=== PATIENT | female | born 1935 | race Caucasian/White ===

== ENCOUNTER → 2017-12-31 11:44 | Outpatient (REF) | payer MEDICARE, SELFPAY ==
[2017-12-31 18:16] LABS: Basophils % 0.2 % (0.1-2.0); Eosinophils # 0.1 K/mm3 (0.0-0.4); Eosinophils % 3.8 % (0.1-12.0); Hematocrit 33.5 % (37.0-47.0); Lymphocytes # 0.9 K/mm3 (0.7-4.5); Lymphocytes % 24.6 K/mm3 (10-50); Mean Corpuscular HGB Conc 32.8 g/dL (31.8-35.4); Mean Corpuscular Hemoglobin 31.5 pg (27.0-31.2); Mean Corpuscular Volume 95.9 fl (81-99); Mean Platelet Volume 9.6 fl (7.4-10.4); Monocytes # 0.4 K/mm3 (0.1-1.0); Monocytes % 9.6 % (1.7-9.3); Neutrophils # 2.3 K/mm3 (1.8-7.8); Neutrophils % 61.9 % (37.0-80.0); Platelet Count 184 K/mm3 (142-424); Red Blood Count 3.49 M/mm3 (4.20-5.40); Red Cell Distribution Width 12.8 % (11.5-17.5); White Blood Count 3.8 K/mm3 (4.8-10.8)
[2017-12-31 18:37] LABS: Alanine Aminotransferase 19 U/L (12-78); Albumin Level 3.8 gm/dL (3.4-5.0); Albumin/Globulin Ratio 1.2 (1.1-1.8); Alkaline Phosphatase 51 U/L (46-116); Anion Gap 15.5 mEq/L (5-15); Aspartate Amino Transferase 17 U/L (15-37); Bilirubin,Total 0.3 mg/dL (0.2-1.0); Blood Urea Nitrogen 23 mg/dL (7-18); Calcium 9.5 mg/dL (8.5-10.1); Carbon Dioxide 25 mmol/L (21.0-32.0); Chloride 104 mmol/L (98-107); Chol/HDL Ratio 2.6 (1-3.5); Cholesterol 195 mg/dL (140-200); Creatinine,Serum 1.44 mg/dL (0.55-1.02); Estimated Glomerular Filt Rate 35 ml/min (>60); GFR (African American) 42 ML/MIN (>60); Globulin 3.3 gm/dl (1.3-3.2); Glucose 100 mg/dL (74-106); HDL Cholesterol 74 mg/dL (29-89); LDL Cholesterol 95 mg/dL (0-130); Potassium 4.5 mmoL/L (3.5-5.1); Sodium 140 mmol/L (136-145); Thyroid Stimulating Hormone 1.35 uIU/ml (0.358-3.740); Total Protein,Serum 7.1 gm/dL (6.4-8.2); Triglycerides 130 mg/dL (30-200); VLDL Cholesterol 26 mg/dL (0-40)
== END ==
LOC: LAB 11:44
PROVIDERS: Visit Provider Physician Assistant
DX: I10 Essential (primary) hypertension (principal)
CPT/HCPCS: 80053; 80061; 84436; 84443; 85025

== ENCOUNTER → 2018-02-24 09:24 | Outpatient (CLI) | payer MEDICARE, SELFPAY ==
--- NOTE | 2018-02-24 09:28 | MM_ITS ---
MM Dig screening mamm BI w/CAD ORDERING PHYSICIAN : MISAEL Dubon PATIENT AGE: 82 years GENDER: Female COMPARISON: December 2016. September 2013, August 2012 INDICATION: ITS.REASON: screening 82-year-old. Right lumpectomy with radiation upper outer quadrant right breast. Patient has been tender & sore at right breast many years. No hormones. No new complaints. Noncontributory family history TECHNIQUE: Standard CC and MLO images were obtained. R2 CAD reviewed. Note Difficulty with positioning right breast as patient pulled away, due to chronic sore right breast FINDINGS: Left breast larger than right due to right lumpectomy. Minimal residual fibroglandular elements is most notable on left ...... RIGHT BREAST: Follow-up in one year recommended. No significant new findings Postsurgical changes right breast with architectural distortion and scarring. Large ovoid mass upper-outer quadrant right breast. . 3.1 cm AP x 2.2 cm height, Stable size of this since studies dating back to outside mammogram 2010.. However there have been gradual progressive very dense calcification about its margin of this mass over the series of studies.-Appears reflect Long-standing postsurgical mass density. Possible only a hematoma and/or fat necrosis focus... Progressive Calcified margin suggest fat necrosis calcifications or less likely hematoma sequela. It can be followed Remainder of right breast with progressive benign secretory calcifications. These can be followed ... LEFT BREAST:. Slight Progression of the benign secretory calcifications bilateral. However in addition there is a focus of perhaps subtle increasing soft tissue density along with slight progressive calcifications.. ... Although similar to the other secretory calcifications, these calcifications are slightly more variable in orientation and appearance. Warrant magnification spot views here cc, 90 degree. This area labeled X. The associated area of inhomogeneous soft tissue density spans up to 18 mm AP pelvis 12 mm wide this component is similar if not slightly more pronounced than previous study ... Ultrasound this area would also be suggested when patient returns. IMPRESSION: 1. LEFT BREAST:-Recommend Magnification views with left breast ultrasound ... Subtle progression density & slight progression calcifications seen at area labeled X, medial/inferior left breast. The calcifications here are similar to other secretory calcifications but seen to be slightly more variable. ... Magnification views & ultrasound here suggested to further evaluate Area labeled X 2. RIGHT BREAST... .:... Previous lumpectomy & radiation, with no new findings of significant concern on today's study ... Slight progression of the benign dense calcifications about the stable long-standing postsurgical mass deep right breast. . Follow up one year recommended on right BI-RADS Category: 0 Need Additional Imaging Evaluation 0 RECOMMENDED FOLLOW-UP: IMM - IMMEDIATE FOLLOW-UP RECOMMENDED . magnification views left breast.. Ultrasound left breast suggested as well (A letter has been sent to the patient regarding results of the study.)
== END ==
PROVIDERS: Visit Provider Physician Assistant
DX: Z12.31 Encounter for screening mammogram for malignant neoplasm of breast (principal)
CPT/HCPCS: 77067

== ENCOUNTER → 2018-03-12 13:31 | Outpatient (CLI) | payer MEDICARE, SELFPAY ==
--- NOTE | 2018-03-12 13:33 | US_ITS ---
MM Dig spot mag LT, US breast LT complete Ordering Physician: MISAEL Dubon Patient Age: 82 years Female COMPARISON: Bilateral screening mammogram 02/24/2018.. & December 2016. INDICATION: Progressing linear slight Irregular calcifications left breast Previous right lumpectomy for malignancy. TECHNIQUE: Magnification CC & MLO, & 90 degrees views of area of density with calcifications medial left breast. FINDINGS: Left breast magnification views: Patient has a background of numerous secretory calcifications bilaterally most notable at the left breast.. However at the medial left breast there area of slight progressive density associated with slightly radiating unusual orientation of similar linear calcifications. -Although these certainly could be variations of secretory calcifications and variability the slight variability and slight progression of these more variable in slight unusual radiating orientation of these linear calcifications is bothersome. This area Labeled X and warrants stereotactic biopsy Because of these features in this high-risk patient with previous right breast cancer,, would suggest stereotactic biopsy of the area labeled X on left IMPRESSION: ... . Recommend stereotactic biopsy of calcifications medial left breast labeled X Slight progressive a small density as well as slight progression of the radiating linear calcifications at this region labeled X.. Although this could be slight unusual area of secretory calcifications, secretory disease regarding orientation slight progression in this high-risk patient is bothersome. & Warrants biopsy BI-RADS Category: 4 Suspicious Abnormality-Biopsy Considered RECOMMENDED FOLLOW-UP: BIO - BIOPSY RECOMMENDED Stereotactic biopsy recommended* A letter has been sent to the patient regarding results of the study.)
== END ==
PROVIDERS: PCP Physician Assistant; Visit Provider Physician Assistant
DX: R92.8 Other abnormal and inconclusive findings on diagnostic imaging of breast (principal)
CPT/HCPCS: 76641; 77065

== ENCOUNTER → 2018-03-31 10:20 | Outpatient (CLI) | payer MEDICARE, SELFPAY ==
--- NOTE | 2018-03-31 | MM_ITS ---
MM stereotactic loc LT, MM clip placement LT RIGHT BREAST STEREOTACTIC BIOPSY With Clip Placement SPECIMEN RADIOGRAPH DIAGNOSTIC MAMMOGRAM POST BIOPSY LIMITED HISTORY AND PHYSICAL EXAM Ordering Physician: MISAEL Dubon Patient Age: 82 years Female LIMITED FOCUSED H&P: HISTORY: Progressing focal grouping of Breast calcifications Limited physical exam performed by Dr. Juares. Lungs: Clear.Heart: Regular rate and rhythm. Mental status: Within normal limits. PROCEDURE: STEREOTACTIC VACUUM-ASSISTED CORE BX, W/ CLIP PLACEMENT: Prior t mammogram showed showedMicrocalcifications medial left breast position .. The patient was given 1 mg of Xanax, Lortab 5 mg, prior to procedure for mild analgesia and minor sedation. The patient was placed on the stereotactic table and the abnormality was localized in the most appropriate projection. The breast was prepped in the routine manner, with sterile prep and the overlying skin anesthetized. A 2 -3 mm skin incision was performed and a large gauge mammotome vacuum-assisted core biopsy needle was advanced to the region of the calcification. Pre- and post fire images were obtained. After adequate positioning relative to the calcifications was ensured, multiple biopsies were obtained in the region of the calcifications specifically. Multiple core biopsies obtained were sent for specimen mammography. After the calcifications were indeed identified on the specimen mammogram, the procedure was terminated. A tiny titanium nonferromagnetic MicroMark was positioned through the mammotome needle into the biopsy site . The patient tolerated the procedure well without complications. Specimen was sent for pathologic analysis which should be forthcoming within 3 working days. Routine follow-up phone call to patient is to be performed as well. IMPRESSION 1. Successful stereotactic vacuum-assisted core biopsy, with adequate sampling, (& removal) the area of targeted calcifications. The calcifications are evident on the subsequent specimen radiograph Successful stereotactic vacuum-assisted core biopsy of these breast calcifications. 2. Successful placement of a titanium metal MicroMark. 3. No evidence complications. SPECIMEN RADIOGRAPH: The mammographically evident calcifications from the prior study are currently evident within sampling containers and within the specimens obtained during mammotome procedure... Adequate specimen and the procedure was terminated. IMPRESSION: Successful removal of described breast calcifications. Successful stereotactic biopsy RIGHT BREAST DIAGNOSTIC MAMMOGRAM - post biopsy Compared to the prior study, the region of previously noted calcification have been removed. A small MicroMark clip was inserted into the region of the calcifications. There is evidence of soft tissue changes in the region of the biopsy was soft tissue gas and edema. A fairly large biopsy defect with air-fluid level reflecting some minimal bleeding into the area IMPRESSION: 1. Successful stereotactic biopsy with clip placement. Removal of targeted calcifications which were found to be benign on subsequent pathology evaluation 2. Adequate placement of the MicroMark clip postbiopsy. . Postbiopsy changes evident on postbiopsy mammogram. PATHOLOGY report:. No malignancy Benign breast stromal fibrosis adenosis and sclerotic fibromyxoid change. . BI-RADS Category: 2 Benign Finding(s) RECOMMENDED FOLLOW-UP: 1YR 1 YEAR FOLLOW-UP A letter has been sent to the patient regarding results of the study.)
== END ==
PROVIDERS: PCP Physician Assistant; Visit Provider Physician Assistant
DX: R92.8 Other abnormal and inconclusive findings on diagnostic imaging of breast (principal)
CPT/HCPCS: 19081; 77065; 88305

== ENCOUNTER → 2019-12-29 17:51 | Outpatient (CLI) | payer MEDICARE, SELFPAY ==
[2019-12-29 18:18] LABS: Basophils % 0.3 % (0.1-2.0); Eosinophils # 0.2 K/mm3 (0.0-0.4); Eosinophils % 5.2 % (0.1-12.0); Hematocrit 33.3 % (37.0-47.0); Hemoglobin 11.3 g/dL (12.2-16.2); Lymphocytes % 22.3 % (10-50); Mean Corpuscular Hemoglobin 32.5 pg (27.0-31.2); Mean Corpuscular Volume 95.6 fl (81-99); Mean Platelet Volume 9.5 fl (7.4-10.4); Monocytes # 0.4 K/mm3 (0.1-1.0); Monocytes % 8.5 % (1.7-9.3); Neutrophils # 2.9 K/mm3 (1.8-7.8); Neutrophils % 63.8 % (37.0-80.0); Platelet Count 184 K/mm3 (142-424); Red Blood Count 3.48 M/mm3 (4.20-5.40); White Blood Count 4.6 K/mm3 (4.8-10.8)
[2019-12-29 18:20] LABS: Chloride 107 mmol/L (98-107); Potassium 4.4 mmoL/L (3.5-5.1); Sodium 139 mmol/L (136-145)
[2019-12-29 18:23] LABS: Alanine Aminotransferase 11 U/L (12-78); Albumin Level 4.1 g/dl (3.5-5.0); Albumin/Globulin Ratio 1.5 (1.1-1.8); Alkaline Phosphatase 48 U/L (38-126); Anion Gap 15.4 mEq/L (5-15); Aspartate Amino Transferase 30 U/L (14-36); Bilirubin,Total 0.5 mg/dl (0.2-1.3); Blood Urea Nitrogen 33 mg/dl (7-17); Carbon Dioxide 21 mmol/L (22.0-30.0); Cholesterol 199 mg/dl (140-200); Estimated Glomerular Filt Rate 31 ml/min (>60); GFR (African American) 37 ML/MIN (>60); Globulin 2.7 g/dL (1.3-3.2); Glucose 111 mg/dl (74-100); Total Protein,Serum 6.8 g/dl (6.3-8.2); Triglycerides 203 mg/dl (30-150); VLDL Cholesterol 41 mg/dL (0-40)
[2019-12-29 18:24] LABS: Chol/HDL Ratio 2.4 (1-3.5); HDL Cholesterol 83 mg/dl (40-60)
[2019-12-29 18:34] LABS: Direct LDL Cholesterol 91.06 mg/dL (100-129)
[2019-12-29 18:54] LABS: Thyroid Stimulating Hormone 1.88 uIU/mL (0.465-4.68)
== END ==
PROVIDERS: Visit Provider Physician Assistant
DX: K59.00 Constipation, unspecified (principal); Z00.00 Encounter for general adult medical examination without abnormal findings; I10 Essential (primary) hypertension
CPT/HCPCS: 80053; 80061; 84436; 84443; 85025

== ENCOUNTER 2020-03-02 11:19 | Emergency (ER) | payer MEDICARE, SELFPAY ==
[2020-03-02 11:22] VITALS: BP 146/77; PULSE 73; RESP 18; TEMP 36.4; O2SAT 99; BMI 20.5
--- NOTE | 2020-03-02 11:39 | CT_ITS ---
PROCEDURE: CT CERVICAL SPINE WO CON CLINICAL INDICATION: fall Neck injury with pain, contusion/abrasion or hematoma, cervical sprain/strain the COMPARISON: No exams were available for comparison TECHNIQUE: Axial images obtained with sagittal and coronal reformats. All CT scans at the facility use one or more dose reduction, viz: automated exposure control, ma/kV adjustment per patient size (including targeted exams where dose is matched to indication, i.e. head), or iterative reconstruction technique. Axial spiral CT scanning performed of the cervical spine beginning at the base of the skull and continuing to the upper T-spine. 3-D multiplanar reconstruction with 3-D manipulation of volumetric data set in image rendering was completed by the radiologist and/or technologist with the supervision of the radiologist on independent workstation. FINDINGS: There is mild cervical curvature convex right. Mild multilevel cervical spondylosis is present with facet arthritic changes from C3 to C7. There is mild bilateral foraminal narrowing at C6-C7 with degenerative disc disease at that level. Mild degenerative disc disease C5-C6 and C7-T1. 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 No obvious fracture or dislocation. Lung apices are clear. IMPRESSION: 1. No acute fracture. 2. Cervical spondylosis Dictated by: Saleem Oates MD 03/02/2020 13:01 Saleem Oates MD in [facility] 03/02/2020 13:01
--- NOTE | 2020-03-02 11:39 | CT_ITS ---
PROCEDURE: CT HEAD/BRAIN WO CON CLINICAL INDICATION: fall Head injury with headache/pain, contusion, abrasion or hematoma COMPARISON: CT HDWO CT HEAD W/O CONTRAST from 12/01/2016 TECHNIQUE: Axial images obtained. All CT scans at the facility use one or more dose reduction, viz: automated exposure control, ma/kV adjustment per patient size (including targeted exams where dose is matched to indication, i.e. head), or iterative reconstruction technique. FINDINGS: No midline shift, mass effect, intracranial hemorrhage, hydrocephalus, or extra-axial fluid collection is evident. There is generalized atrophy with hypoattenuation of the periventricular white matter consistent with microangiopathic changes.. The atrophy is greatest in the frontal lobes. This is not significantly changed. 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 The calvarium has an unremarkable appearance. No mastoid effusion. No sinus air-fluid level. There is mild soft tissue swelling of the scalp in the right parietal region. IMPRESSION: No acute intracranial finding Small right parietal scalp hematoma Dictated by: Saleem Oates MD 03/02/2020 12:55 Saleem Oates MD in [facility] 03/02/2020 12:55
--- NOTE | 2020-03-02 12:08 | PC.NURSE ---
Pt to rad.
--- NOTE | 2020-03-02 12:43 | HMH.EDGENADL ---
ED Disposition Clinical Impression: Closed head injury Qualifiers: Encounter type: initial encounter Qualified Code(s): S09.90XA - Unspecified injury of head, initial encounter Disposition: Home, Self-Care Condition on Discharge: Fair Instructions: DI for Closed Head Injury Additional Instructions: Done a CT of your head as well as CT of your cervical spine and no acute findings are noted you do have a hematoma in the back of your head; rest ice and medications such as tylenol are advised; please follow-up in case of any concerns Referrals: Aleah Cook PA [Primary Care Provider] - Time of Disposition: 13:18 - Critical Care Critical Care Time: No Attestation: On 03/02/20, the high probability of a clinically significant, sudden or life threatening deterioration of the following system(s) required my full and direct attention, intervention and personal management. The time I documented below is in addition to time spent performing reported procedures but includes the following listed in this critical care notation. Medical Decision Making - Medical Records Medical records reviewed: Yes: I reviewed the patient's medical records. - Judson Inquiry Pt receiving controlled substance: No Judson was queried for this patient: No Vital Signs: 03/02/20 11:22 Temperature 97.6 F Temperature Source Temporal Artery Scan Pulse Rate [Right] 73 Respiratory Rate 18 Blood Pressure [Right Arm] 146/77 H Blood Pressure Mean [Right Arm] 100 02 Sat by Pulse Oximetry 99 General Adult HPI - General Chief complaint: Head Injury Stated complaint: fell on ao 03/02/20 Time Seen by Provider: 03/02/20 12:44 Mode of Arrival: Ambulatory Limitations: No Limitations Description of Symptoms (Recalled from ER Triage Doc. by RN): Pt states 30 mins ago she tripped over he footing and his the back of her head on the concrete. Denies loc - History of Present Illness HPI narrative: Pt states about an hour ago she tripped and fell and hit the back of her head on the concrete. she has a hematoma and was able to get up and walk and is in no distress at this time. Denies loc Onset (ago): hour(s) Location: head Radiation: non-radiation Severity: mild Severity scale (1-10): 2 Quality: aching Consistency: constant Relieving factors: none Exacerbating factors: none Associated symptoms: denies other symptoms - Related Data Previous Rx's Medication Instructions Recorded amlodipine 5 mg tablet 5 mg PO ONCE #90 tab 12/28/19 lisinopril 20 mg tablet See Rx Instructions .ROUTE 12/28/19 .COMPLEX #90 tab pravastatin 40 mg tablet See Rx Instructions .ROUTE 12/28/19 .COMPLEX #90 tab Allergies Allergy/AdvReac Type Severity Reaction Status Date / Time Penicillins Allergy Severe S-SWELLS-OR Verified 12/29/19 14:10 AL/THROAT [facility] History - Hepatitis A Screen Drug use history?: No High risk sexual behaviors?: No History of sexually transmitted infection?: No Currently employed?: No Childcare worker?: No Do you have indoor plumbing?: Yes Do you have electricity?: Yes Attestation statement:: This patient has been screened for Hepatitis A risk factors. Medical History: Reports:: Hypertension Denies:: Diabetes Mellitus Type 1, Diabetes Mellitus Type 2 Laterality Cases: Right: Lumpectomy Other Surgeries: Yes: Cardiac Catheterization, Cardiac Surgery Amputation: No Fractures: No - Social History Smoking Status: Never smoker Alcohol Intake: never Substance Use Type: denies use Occupational Status: retired Family Hx:: No significant family history ROS Obtained: Yes All systems reviewed & no additional complaints - Constitutional Constitutional: Reports system reviewed and no additional complaints, except as docu Physical Exam - General General appearance: alert, in no apparent distress - Head Head exam: other (hematoma back of the head) - Eye Eye exam: Present: normal appearance, other (does have lef
[2020-03-02 13:25] VITALS: BP 133/62; PULSE 80; RESP 17; TEMP 36.7; O2SAT 100
== END 2020-03-02 13:25 | disposition home or self-care (01) ==
PROVIDERS: Emergency Provider Emergency Medicine; PCP Physician Assistant
DX: S09.90XA Unspecified injury of head, initial encounter (principal); W18.09XA Striking against other object with subsequent fall, initial encounter; Y92.89 Other specified places as the place of occurrence of the external cause; Z88.0 Allergy status to penicillin; I10 Essential (primary) hypertension; Z79.899 Other long term (current) drug therapy
CPT/HCPCS: 70450; 72125; 99282

== ENCOUNTER → 2020-04-02 10:20 | Outpatient (CLI) | payer MEDICARE, SELFPAY ==
--- NOTE | 2020-04-02 10:20 | MM_ITS ---
PROCEDURE: MM DIG SCREENING MAMM BI W/CAD Digital Breast Tomosynthesis Included CLINICAL INDICATION: screening There has been a previous lumpectomy right breast for malignancy with follow-up radiation therapy. COMPARISON: MG SCBI MM Dig screening mamm BI w/CAD from 02/24/2018 MG MAGLT MM Dig spot mag LT from 03/12/2018 MG STLT MM stereotactic loc LT from 03/31/2018 TECHNIQUE: Standard CC and MLO images and 3D Tomosynthesis was obtained. R2 CAD reviewed. FINDINGS: Moderate somewhat heterogenic fibroglandular densities are seen throughout both breasts. There is a stable large mass with benign-appearing calcifications at the lumpectomy site presumably representing dystrophic calcifications and/or fat necrosis from the previous lumpectomy. Moderate stable post lumpectomy scarring is again noted. There are few scattered microcalcifications left breast most of which are typical of secretory disease. There are stable asymmetric glandular elements left breast. There is no new or suspicious lesion in either breast and no suspicious microcalcifications. IMPRESSION: Stable exam with prominent postlumpectomy scarring and large stable calcified mass right breast BI-RAD Category: 2 Benign Finding(s) FOLLOW-UP: 1YR 1 Year Follow-up (A letter has been sent to the patient regarding results of the study.) Dictated by: Dr. Giancarlo Vernon MD 04/06/2020 09:13 Dr. Giancarlo Vernon MD in [place] 04/06/2020 09:13
== END ==
PROVIDERS: PCP Physician Assistant; Visit Provider Physician Assistant
DX: Z12.31 Encounter for screening mammogram for malignant neoplasm of breast (principal)
CPT/HCPCS: 77063; 77067

== ENCOUNTER → 2020-09-04 14:54 | Outpatient (CLI) | payer MEDICARE, SELFPAY ==
--- NOTE | 2020-09-04 15:00 | XR_ITS ---
PROCEDURE: XR HIP LT 2-3V W/PELVIS CLINICAL INDICATION: hip pain COMPARISON: CR XR HIP LT 2-3V W/PELVIS from 04/18/2019 FINDINGS: There are minimal osteoarthritic changes of the hips. No acute fracture or dislocation. No lytic or blastic change. There is diffuse vascular calcification. IMPRESSION: No acute findings. Dictated by: Saleem Oates MD 09/04/2020 17:03 Saleem Oates MD in [place] 09/04/2020 17:03
== END ==
PROVIDERS: PCP Physician Assistant; Visit Provider Orthopaedic Surgery
DX: M25.552 Pain in left hip (principal)
CPT/HCPCS: 73502

== ENCOUNTER → 2020-11-13 17:23 | Outpatient (CLI) | payer MEDICARE, SELFPAY ==
[2020-11-13 18:19] LABS: Basophils % 0.3 % (0.1-2.0); Eosinophils # 0.2 K/mm3 (0.0-0.4); Eosinophils % 3.5 % (0.1-12.0); Hematocrit 37.7 % (37.0-47.0); Hemoglobin 12.7 g/dL (12.2-16.2); Lymphocytes # 1.3 K/mm3 (0.7-4.5); Lymphocytes % 21.3 % (10-50); Mean Corpuscular HGB Conc 33.6 g/dL (31.8-35.4); Mean Corpuscular Hemoglobin 31.3 pg (27.0-31.2); Mean Platelet Volume 9.7 fl (7.4-10.4); Monocytes # 0.6 K/mm3 (0.1-1.0); Monocytes % 9.5 % (1.7-9.3); Neutrophils # 3.9 K/mm3 (1.8-7.8); Neutrophils % 65.3 % (37.0-80.0); Platelet Count 199 K/mm3 (142-424); Red Blood Count 4.05 M/mm3 (4.20-5.40); Red Cell Distribution Width 13.5 % (11.5-17.5)
[2020-11-13 19:15] LABS: Alanine Aminotransferase 9 U/L (12-78); Albumin Level 4.4 g/dl (3.5-5.0); Albumin/Globulin Ratio 1.5 (1.1-1.8); Alkaline Phosphatase 61 U/L (38-126); Anion Gap 14.9 mEq/L (5-15); Aspartate Amino Transferase 24 U/L (14-36); Bilirubin,Total 0.5 mg/dl (0.2-1.3); Blood Urea Nitrogen 26 mg/dl (7-17); Calcium 9.6 mg/dl (8.4-10.2); Carbon Dioxide 23 mmol/L (22.0-30.0); Chloride 105 mmol/L (98-107); Chol/HDL Ratio 2.6 (1-3.5); Cholesterol 209 mg/dl (140-200); Estimated Glomerular Filt Rate 39 ml/min (>60); GFR (African American) 47 ML/MIN (>60); Globulin 2.9 g/dL (1.3-3.2); Glucose 85 mg/dl (74-100); HDL Cholesterol 80 mg/dl (40-60); Potassium 4.9 mmoL/L (3.5-5.1); Sodium 138 mmol/L (136-145); Total Protein,Serum 7.3 g/dl (6.3-8.2); Triglycerides 157 mg/dl (30-150); VLDL Cholesterol 31 mg/dL (0-40)
[2020-11-13 19:26] LABS: Direct LDL Cholesterol 96.64 mg/dL (100-129)
[2020-11-13 19:28] LABS: Free T4 (Free Thyroxine) 1.12 ng/dl (0.78-2.19)
[2020-11-13 19:29] LABS: 25-OH Vitamin D, Total 21.7 ng/mL (30-100)
[2020-11-13 19:48] LABS: Thyroid Stimulating Hormone 2.66 uIU/mL (0.465-4.68)
== END ==
PROVIDERS: Visit Provider Physician Assistant
DX: E78.5 Hyperlipidemia, unspecified (principal); I10 Essential (primary) hypertension; K59.00 Constipation, unspecified; E55.9 Vitamin D deficiency, unspecified
CPT/HCPCS: 80053; 80061; 82306; 84439; 84443; 85025

== ENCOUNTER → 2020-11-22 13:47 | Outpatient (POV) | payer MEDICARE, SELFPAY ==
[2020-11-22 14:54] VITALS: BP 137/77; PULSE 67; RESP 18; O2SAT 97; BMI 20.5
--- NOTE | 2020-11-22 15:10 | HMH.PMCON ---
Assessment and Plan (1) Low back pain Status: Chronic Category: Medical Code(s): M54.5 - Low back pain (2) Bilateral hip pain Status: Chronic Category: Medical Code(s): M25.551 - Pain in right hip; M25.552 - Pain in left hip (3) Bilateral leg pain Status: Chronic Category: Medical Code(s): M79.604 - Pain in right leg; M79.605 - Pain in left leg - Assessment and plan all Dx Assessment and Plan for all problems:: We will schedule patient for an MRI of her lumbar spine. We will see her back in the clinic after the MRI to discuss a further plan of care. She has not had any imaging of her lumbar spine. She did undergo an x-ray of her hip and 2019 when she suffered from a fall. That is the only imaging noted in the system. We will order her prednisone 20 mg 1 tablet p.o. twice daily for 5 days to see if this gives her some relief until we can discuss a further plan of care after her imaging. She is in agreement. We will follow up with her after the MRI. Possible side effects of corticosteroids have been discussed with the patient. Patient has been instructed to contact the clinic with any concerns before the next appointment. Dr. Serrano has reviewed this note and agrees with this plan of care. This note was dictated using voice recognition software and make contain errors or omissions. HPI - Data of Consult Patient: new to practice Consult date: 11/22/20 Requesting Physician: Yesi Doshi APRN Primary Care Provider: MISAEL Guzman - Consult Narrative Reason for consult: Low back pain, leg pain, hip pain History of present illness: Ms. Luis is a 85 year old female who presents today for consultation for chronic low back pain and hip pain. Patient says that she was diagnosed with degenerative disc disease lumbar spine and 1999. She says she is having chronic low back pain for many years. She says she tolerates the pain activity. She does live alone. She uses a cane for ambulation. She says that she did have a fall in April 2019 for which she thought she had a fractured hip. Patient says after further evaluation and a trip to the emergency room, she was negative for work-up for fractured hip. She did not have any imaging of her lumbar spine at that time. The pain has worsened. She is now using a cane at all times. She says that her pain is worse after any type of movement. She does feel better with leaning forward. Her legs are giving her pain as well. She says that she is now limited with her activity due to her significant pain. She does rate her pain a 7 out of 10. She has failed conservative therapies of oral medications in the past with a continued home stretching program. She has not had any recent imaging of her lumbar spine. We did discuss sending the patient for an MRI of her lumbar spine and a 5-day dose of steroids until we can get her MRI back to discuss a further plan of care. She is in agreement. CC: Yesi Doshi APRN [facility] History I have reviewed the patient's past medical history: Yes Medical History: Reports:: Hyperlipidemia, Hypertension Denies:: Diabetes Mellitus Type 1, Diabetes Mellitus Type 2 *Have you ever received a pneumonia vaccine?: Yes *Have you received a flu vaccine this season?: Yes Laterality Cases: Right: Lumpectomy Other Surgeries: Yes: Cardiac Catheterization, Cardiac Surgery Amputation: No Fractures: No - *Social History Smoking Status: Never smoker Alcohol Intake: never Substance Use Type: denies use *Occupational Status:: unemployed, retired *Travel in the last 8 weeks: None Family Hx:: No significant family history Review of Systems - Review of Systems Review of Systems General: No recent weight changes, no fever, no sleep disturbances Respiratory: No cough, no shortness of air, no recurring pulmonary infections Cardiovascular/peripheral vascular: No chest pain, no palpitations, no edema, no shortness of breath
== END ==
PROVIDERS: PCP Physician Assistant; Visit Provider Clinical Nurse Specialist Family Health
DX: M54.5 Low back pain (principal); M25.551 Pain in right hip; M79.604 Pain in right leg
CPT/HCPCS: 99202; G0463

== ENCOUNTER → 2020-11-23 08:45 | Outpatient (CLI) | payer MEDICARE, SELFPAY ==
--- NOTE | 2020-11-23 08:45 | XR_ITS ---
PROCEDURE: XR DEXA AXIAL SKELETON CLINICAL HISTORY: screening COMPARISON: No exams were available for comparison FINDINGS: The right hip BMD is 0.633 with a T-score of -1.9. The left hip BMD is 0.722 with a T-score of -1.8. The lumbar spine BMD is 1.464 with a T-score of 3.8. There is lumbar scoliosis convex right with sclerotic changes in the lumbar spine IMPRESSION: This patient is considered osteopenic according to the World Health Organization criteria. Bone density is between 10 and 25 percent below young normal. Fracture risk is moderate. Treatment is advised. Based on these results a follow-up exam is recommended in 2 year. Dictated by: Saleem Oates MD 11/26/2020 07:35 Saleem Oates MD in [place] 11/26/2020 07:35
== END ==
PROVIDERS: PCP Physician Assistant; Visit Provider Physician Assistant
DX: Z78.0 Asymptomatic menopausal state (principal); Z13.820 Encounter for screening for osteoporosis
CPT/HCPCS: 77080

== ENCOUNTER → 2020-11-28 12:48 | Outpatient (CLI) | payer MEDICARE, SELFPAY ==
--- NOTE | 2020-11-28 13:02 | MR_ITS ---
PROCEDURE: MR LUMBAR SPINE WO CON CLINICAL INDICATION: LBP Pt c/o lbp with trouble walking. Pt denies injury or trauma. COMPARISON: CT CT ABDOMEN PELVIS WO CON from 12/25/2018 TECHNIQUE: Standard multiplanar multiecho sequences are performed without contrast. 3-D MIP and myelographic images are also rendered and reviewed FINDINGS: Dextroscoliosis of the lumbar spine 18 degrees. There is reversal of the lumbar lordosis. There is multilevel degenerative disc disease as described below. The spinal cord ends at the L1 level. T10-T11: 2 mm anterolisthesis with mild degenerative disc disease. Hemangioma at T10 vertebral body at 11 mm. T11-T12: Unremarkable. T12-L1: Degenerative disc disease other than a small hemangioma at T11 L1-L2: Degenerative disc disease with facet hypertrophic change and mild left lateral recess narrowing. Mild endplate hypertrophy. Left-sided foraminal narrowing. L2-L3: 3 mm retrolisthesis of L2 with degenerative disc disease. Facet and ligamentum hypertrophy. Moderate left lateral recess narrowing and severe left-sided foraminal narrowing. Hemangioma in L3 at 8 mm L3-L4: Degenerative disc disease with bulging disc with 5 mm retrolisthesis of L3. Severe facet and ligamentum hypertrophy with severe canal stenosis of 6 mm. There is severe bilateral lateral recess narrowing and severe bilateral foraminal narrowing. Foraminal narrowing is slightly greater on the left. L4-5: Degenerative disc disease with bulging disc and moderate to severe facet and ligamentum hypertrophy. 2 mm anterolisthesis of L4. Severe right-sided foraminal narrowing and moderate to severe left-sided foraminal narrowing. There is canal stenosis at this level as well. Severe right-sided lateral recess narrowing and moderate to severe left-sided lateral recess narrowing. L5-S1: Degenerative disc disease with mild bulging disc with facet and ligamentum hypertrophy left greater than right with severe left-sided foraminal narrowing and moderate to severe right foraminal narrowing. The IMPRESSION: Abnormal MRI of the lumbar spine. There is multilevel lumbar spondylosis with kyphosis and dextroscoliosis. Multilevel degenerative disc disease with bulging disc along with facet ligamentum hypertrophy result in varying degrees of foraminal and lateral recess narrowing severe at some levels with canal stenosis at L3-L4 and L4-5. No extruded herniated disc apparent. Please see above for details at each level Dictated by: Saleem Oates MD 11/29/2020 07:47 Saleem Oates MD in [place] 11/29/2020 07:47
== END ==
PROVIDERS: PCP Physician Assistant; Visit Provider Clinical Nurse Specialist Family Health
DX: M54.5 Low back pain (principal)
CPT/HCPCS: 72148; 76376

== ENCOUNTER → 2020-12-06 14:25 | Outpatient (POV) | payer MEDICARE, SELFPAY ==
[2020-12-06 15:27] VITALS: BP 132/65; PULSE 62; RESP 18; O2SAT 96; BMI 21.9
--- NOTE | 2020-12-06 16:07 | P.CONS_ITS ---
[facility] Pain Management SOAP Note Subjective:: Patient is a pleasant 85-year-old white female who presents today for follow-up after an MRI of her lumbar spine. She has been treated for chronic low back pain with lumbar radiculopathy symptoms. She has pain primarily in her low back area with radiation into her hip. She does have history of degenerative disc disease lumbar spine. She has had chronic low back pain for many years. She did have a fall in April 2019 for which she thought she had a fractured hip. Since then her pain has progressively worsened. Patient says she is having heaviness and weakness in her lower extremity as well. She does have relief when she leans forward. She was given a 5-day dose of steroids and says this gave her short-term relief. She is here today to review her MRI. She does rate her pain a 6 out of 10. Review of Systems General: No recent weight changes, no fever, no sleep disturbances Respiratory: No cough, no shortness of air, no recurring pulmonary infections Cardiovascular/peripheral vascular: No chest pain, no palpitations, no edema, no shortness of breath Gastrointestinal: No new onset incontinence, normal bowel movements reported Genitourinary: No new onset incontinence Musculoskeletal: Low back pain with radiation into hips and lower extremities Psychiatric: Normal mood/affect Neurological: Weakness in lower extremities?uses cane for ambulation, balance issues Objective:: Physical exam General: Alert and oriented x3, no acute distress, pleasant and cooperative, [on room air] Lungs: Respirations even and unlabored, symmetrical chest expansion Eyes: PERRL Musculoskeletal: Flexion and extension of [] lumbar spine somewhat guarded se condary to pain, deep tendon reflexes normal, strength in upper and lower extremities [5/5], [abnormal gait noted] Neurological: Speech clear, product promoter sales person equal, no gross sensory deficit Assessment:: Degenerative disc disease lumbar spine with lumbar radiculopathy symptoms, spinal stenosis with neurogenic claudication symptoms Plan:: We will schedule the patient for a lumbar epidural steroid injection at L4-L5 area. We did discuss her MRI today. We will see her back in the clinic after her injection for reevaluation of symptoms. Her pain is primarily in her low back with radiation into her hip and her lower extremities. She is also having heaviness and weakness in her lower extremities. She is not on any anticoagulation therapy. Risks and benefits of the procedure have been explained to the patient. Patient would like to proceed with the procedure. Possible side effects of corticosteroids have been discussed with the patient. Patient has been instructed to contact the clinic with any concerns before the next appointment. Dr. Serrano has reviewed this note and agrees with this plan of care. This note was dictated using voice recognition software and make contain errors or omissions. [facility] History I have reviewed the patient's past medical history: Yes Medical History: Reports:: Hyperlipidemia, Hypertension Denies:: Diabetes Mellitus Type 1, Diabetes Mellitus Type 2 *Have you ever received a pneumonia vaccine?: Yes *Have you received a flu vaccine this season?: Yes Laterality Cases: Right: Lumpectomy Other Surgeries: Yes: Cardiac Catheterization, Cardiac Surgery Amputation: No Fractures: No - *Social History Smoking Status: Never smoker Alcohol Intake: never Substance Use Type: denies use *Occupational Status:: unemployed *Travel in the last 8 weeks: None Family Hx:: No significant family history
== END ==
PROVIDERS: PCP Physician Assistant; Visit Provider Clinical Nurse Specialist Family Health
DX: M51.16 Intervertebral disc disorders with radiculopathy, lumbar region (principal); M48.062 Spinal stenosis, lumbar region with neurogenic claudication
CPT/HCPCS: 99212; G0463

== ENCOUNTER 2021-01-04 13:43 | Day surgery (SDC) | payer MEDICARE, SELFPAY ==
[2021-01-04 13:53] VITALS: BP 100/51; PULSE 68; RESP 18; TEMP 37; O2SAT 99; BMI 21.9
[2021-01-04 14:33] VITALS: BP 102/60; PULSE 68; RESP 18; O2SAT 99
[2021-01-04 14:35] VITALS: BP 102/60; PULSE 68; RESP 18; O2SAT 99
[2021-01-04 14:52] VITALS: BP 118/58; PULSE 67; RESP 20; O2SAT 99
--- NOTE | 2021-01-04 14:56 | HMH.PMPROC ---
- Procedure Date: 01/04/21 Time: 14:56 Anesthesiologist:: Sascha Serrano MD Complications:: None Pre-procedure Diagnosis:: Degenerative disc disease of lumbar spine with lumbar radiculopathy symptoms Post-procedure Diagnosis:: Same Indications for Procedure:: This patient is a pleasant 85-year-old white female who we are treating for low back pain with lumbar radiculopathy symptoms. She has increasing pain in her back rating to her hips. She has severe degenerative changes. Will do lumbar epidural steroid injection today to see if this helps with her pain symptoms. She is not a candidate for minimally invasive lumbar decompression given her severe degenerative changes. Procedure Details:: Informed consent was obtained and the risk and benefits of the procedure was explained to the patient. The patient was taken to the procedure room. The patient was placed prone on the procedure table. The patient was prepped and draped in sterile fashion. C-arm fluoroscopy was used to view the lumbar spine. Skin and subcutaneous tissues were anesthetized using lidocaine. I placed an 18-gauge epidural needle and advanced into the L4-L5 interspace using fluoroscopic guidance and [id number] to air. After confirmation of needle placement in the epidural space with dye I injected 2 mL of lidocaine 1.5% with Depo-Medrol 80 mg. Patient tolerated the procedure well with no complications. Plan and Disposition:: We will follow-up with her in 2 weeks. Will reevaluate her symptoms at that time.
== END 2021-01-04 14:53 | disposition home or self-care (01) ==
LOC: SC.PAINP 13:44
PROVIDERS: PCP Physician Assistant; Visit Provider Anesthesiology
DX: M51.16 Intervertebral disc disorders with radiculopathy, lumbar region (principal); E78.5 Hyperlipidemia, unspecified; I10 Essential (primary) hypertension; I25.10 Atherosclerotic heart disease of native coronary artery without angina pectoris; I73.9 Peripheral vascular disease, unspecified; R56.9 Unspecified convulsions; I65.29 Occlusion and stenosis of unspecified carotid artery; Z86.73 Personal history of transient ischemic attack (TIA), and cerebral infarction without residual deficits; Z85.3 Personal history of malignant neoplasm of breast; Z88.0 Allergy status to penicillin
CPT/HCPCS: 62323; J1040; Q9966

== ENCOUNTER → 2021-11-19 16:16 | Outpatient (CLI) | payer MEDICARE, SELFPAY ==
--- NOTE | 2021-11-19 16:24 | MM_ITS ---
PROCEDURE INFORMATION: Exam: MG Bilateral Screening 3D Mammography Exam date and time: 11/19/2021 4:17 PM Age: 86 years old Clinical indication: Screening examination . History of right lumpectomy TECHNIQUE: Imaging protocol: Bilateral Screening tomosynthesis and 2D mammography including computer-aided detection (CAD) when performed. Patient in a wheelchair. Limited study. COMPARISON: 1. MG MM DIG SCREENING MAMM BI W/CAD 04/02/2020 10:30 AM 2. MG STLT MM stereotactic loc LT 03/31/2018 1:34 PM FINDINGS: MAMMOGRAPHY: Breast composition: There are scattered areas of fibroglandular density. Mass: None. Architectural distortion: Stable post operative architectural distortion in the right upper breast with a likely palpable 2.9 cm dystrophic calcification due to prior lumpectomy for carcinoma. Calcifications: No suspicious calcifications. Asymmetric density: None. Skin thickening: None. Axillary adenopathy: None. IMPRESSION: No mammographic evidence of malignancy. Annual screening is recommended unless otherwise clinically indicated. ASSESSMENT: BI-RADS Category 2: Benign
== END ==
PROVIDERS: PCP Physician Assistant; Visit Provider Physician Assistant
DX: Z12.31 Encounter for screening mammogram for malignant neoplasm of breast (principal)
CPT/HCPCS: 77063; 77067

== ENCOUNTER → 2022-06-09 13:46 | Outpatient (CLI) | payer MEDICARE, SELFPAY ==
[2022-06-09 17:24] LABS: Alanine Aminotransferase 10 U/L (12-78); Albumin Level 3.5 g/dl (3.5-5.0); Albumin/Globulin Ratio 1.5 (1.1-1.8); Alkaline Phosphatase 43 U/L (38-126); Anion Gap 12.7 mEq/L (5-15); Aspartate Amino Transferase 22 U/L (14-36); Bilirubin,Total 0.2 mg/dl (0.2-1.3); Blood Urea Nitrogen 61 mg/dl (7-17); Calcium 8.4 mg/dl (8.4-10.2); Carbon Dioxide 22 mmol/L (22.0-30.0); Chloride 106 mmol/L (98-107); Chol/HDL Ratio 3.2 (1-3.5); Cholesterol 155 mg/dl (140-200); Estimated Glomerular Filt Rate 33 ml/min (>60); GFR (African American) 40 ML/MIN (>60); Globulin 2.3 g/dL (1.3-3.2); Glucose 89 mg/dl (74-100); HDL Cholesterol 48 mg/dl (40-60); Potassium 4.7 mmoL/L (3.5-5.1); Sodium 136 mmol/L (136-145); Total Protein,Serum 5.8 g/dl (6.3-8.2); Triglycerides 148 mg/dl (30-150); VLDL Cholesterol 30 mg/dL (0-40)
[2022-06-09 17:25] LABS: Basophils % 0.2 % (0.1-2.0); Eosinophils # 0.2 K/mm3 (0.0-0.4); Eosinophils % 3.3 % (0.1-12.0); Lymphocytes # 1.2 K/mm3 (0.7-4.5); Mean Corpuscular HGB Conc 33.2 g/dL (31.8-35.4); Mean Corpuscular Hemoglobin 32.2 pg (27.0-31.2); Mean Corpuscular Volume 97.1 fl (81-99); Mean Platelet Volume 11.3 fl (7.4-10.4); Monocytes # 0.4 K/mm3 (0.1-1.0); Monocytes % 6.4 % (1.7-9.3); Neutrophils # 3.8 K/mm3 (1.8-7.8); Neutrophils % 68.2 % (37.0-80.0); Platelet Count 217 K/mm3 (142-424); Red Blood Count 1.81 M/mm3 (4.20-5.40); Red Cell Distribution Width 15.2 % (11.5-17.5); White Blood Count 5.5 K/mm3 (4.8-10.8)
[2022-06-09 17:34] LABS: Direct LDL Cholesterol 74.04 mg/dL (100-129)
[2022-06-09 17:50] LABS: Hematocrit 17.6 % (37.0-47.0)
[2022-06-09 17:56] LABS: Thyroid Stimulating Hormone 2.13 uIU/mL (0.465-4.68)
[2022-06-09 18:13] LABS: Hemoglobin 5.8 g/dL (12.2-16.2)
== END ==
PROVIDERS: PCP Student in an Organized Health Care Education/Training Program; Visit Provider Student in an Organized Health Care Education/Training Program
DX: R53.1 Weakness (principal); I10 Essential (primary) hypertension
CPT/HCPCS: 80053; 80061; 84443; 85025

== ENCOUNTER 2022-06-09 19:19 | Inpatient (IN) | payer MEDICARE, SELFPAY ==
[2022-06-09 19:19] VITALS: BP 120/60; PULSE 81; RESP 19; TEMP 36.7; O2SAT 99; BMI 20.6
[2022-06-09 19:31] VITALS: BP 108/52; PULSE 72; RESP 18; O2SAT 100
[2022-06-09 19:49] LABS: Coronavirus 19, PCR Not Detected (NotDetected); Influenza A, PCR Not Detected (NotDetected); Influenza B, PCR Not Detected (NotDetected)
[2022-06-09 19:53] LABS: Basophils % 0.5 % (0.1-2.0); Eosinophils # 0.2 K/mm3 (0.0-0.4); Eosinophils % 3.7 % (0.1-12.0); Lymphocytes # 1.4 K/mm3 (0.7-4.5); Lymphocytes % 25.1 % (10-50); Mean Corpuscular HGB Conc 32.9 g/dL (31.8-35.4); Mean Corpuscular Hemoglobin 31.5 pg (27.0-31.2); Mean Corpuscular Volume 95.6 fl (81-99); Mean Platelet Volume 8.7 fl (7.4-10.4); Monocytes # 0.5 K/mm3 (0.1-1.0); Monocytes % 8.4 % (1.7-9.3); Neutrophils # 3.5 K/mm3 (1.8-7.8); Neutrophils % 62.3 % (37.0-80.0); Platelet Count 219 K/mm3 (142-424); Red Blood Count 1.82 M/mm3 (4.20-5.40); Red Cell Distribution Width 15.2 % (11.5-17.5); White Blood Count 5.6 K/mm3 (4.8-10.8)
[2022-06-09 20:00] LABS: Hematocrit 17.4 % (37.0-47.0); Hemoglobin 5.7 g/dL (12.2-16.2)
--- NOTE | 2022-06-09 20:00 | PC.NURSE ---
Dr. Winslow notified of critical Hgb/Hct
[2022-06-09 20:02] LABS: Chloride 107 mmol/L (98-107); Potassium 4.5 mmoL/L (3.5-5.1); Sodium 138 mmol/L (136-145)
--- NOTE | 2022-06-09 20:03 | XR_ITS ---
PROCEDURE INFORMATION: Exam: XR Chest Exam date and time: 06/09/2022 8:44 PM Age: 86 years old Clinical indication: Other: Weakness TECHNIQUE: Imaging protocol: Radiologic exam of the chest. Views: 1 view. COMPARISON: CT ABDOMEN PELVIS WO CON 06/09/2022 8:36 PM FINDINGS: Lungs: Unremarkable. No consolidation. Pleural spaces: Unremarkable. No pleural effusion. No pneumothorax. Heart/Mediastinum: Mitral annular calcification also demonstrated. Bones/joints: Unremarkable. Soft tissues: Soft tissue calcification superimposed upon the right hemithorax. IMPRESSION: No evidence of acute cardiopulmonary disease.
--- NOTE | 2022-06-09 20:03 | CT_ITS ---
PROCEDURE INFORMATION: Exam: CT Abdomen And Pelvis Without Contrast Exam date and time: 06/09/2022 8:36 PM Age: 86 years old Clinical indication: Abnormal findings; Abnormal lab test; Other: Hgb 5.7; Additional info: Black stool x2 days, hgb 5.7 TECHNIQUE: Imaging protocol: Computed tomography of the abdomen and pelvis without contrast. Radiation optimization: All CT scans at this facility use at least one of these dose optimization techniques: automated exposure control; mA and/or kV adjustment per patient size (includes targeted exams where dose is matched to clinical indication); or iterative reconstruction. COMPARISON: CT ABDOMEN PELVIS WO CON 12/25/2018 12:28 PM FINDINGS: Lungs: Evidence of prior granulomatous disease. Densely calcified granuloma right lower lobe. Coronary arteries: Coronary artery disease. Diaphragm: Small hiatal hernia. Liver: Normal. No mass. Gallbladder and bile ducts: Gallbladder collapsed. Pancreas: Normal. No ductal dilation. Spleen: Normal. No splenomegaly. Adrenal glands: Normal. No mass. Kidneys and ureters: Persistent punctate nonobstructing bilateral renal calculi. Stomach and bowel: Colonic diverticulosis. There is focal thickening of the bowel in the region of the sigmoid colon. Changes of chronic diverticulitis could not be excluded. The stomach is not adequately distended. There is apparent thickening of the gastric wall particularly in the region of the fundus which may be secondary to incomplete distension. Changes of gastritis could not be excluded. Appendix: No evidence of appendicitis. Intraperitoneal space: Unremarkable. No free air. No significant fluid collection. Vasculature: Artifact in the region of the mitral valve as well as the aorta suggesting prior operative intervention. Findings unchanged. Scattered regions of atherosclerotic vascular calcification within the abdominal aorta and common iliac arteries. Lymph nodes: Unremarkable. No enlarged lymph nodes. Urinary bladder: Unremarkable as visualized. Reproductive: Unremarkable as visualized. Bones/joints: Scoliosis of the lumbar spine. Diffuse changes of disc degeneration Soft tissues: Persistent small fat filled umbilical hernia. Other findings: Interpretation is somewhat limited due to lack of contrast administration. IMPRESSION: 1. Apparent thickening of the gastric wall particularly in the region of the fundus which may be secondary to incomplete distension. Changes of gastritis could not be excluded. 2. Colonic diverticulosis. Focal bowel wall thickening in the region of the sigmoid colon. Changes of chronic diverticulitis could not be excluded. Findings suboptimally visualized secondary to lack of contrast administration. If appropriate, follow-up with endoscopy. 3. Please see above report for discussion of nonacute findings.
[2022-06-09 20:05] LABS: Alanine Aminotransferase 13 U/L (12-78); Albumin Level 3.7 g/dl (3.5-5.0); Albumin/Globulin Ratio 1.5 (1.1-1.8); Alkaline Phosphatase 44 U/L (38-126); Anion Gap 12.5 mEq/L (5-15); Aspartate Amino Transferase 28 U/L (14-36); Bilirubin,Total 0.2 mg/dl (0.2-1.3); Blood Urea Nitrogen 63 mg/dl (7-17); Carbon Dioxide 23 mmol/L (22.0-30.0); Creatinine Clearance Estimated 19 mL/min (50-200); Estimated Glomerular Filt Rate 28 ml/min (>60); GFR (African American) 34 ML/MIN (>60); Globulin 2.4 g/dL (1.3-3.2); Total Protein,Serum 6.1 g/dl (6.3-8.2)
[2022-06-09 20:06] LABS: Calcium 8.4 mg/dl (8.4-10.2); Glucose 97 mg/dl (74-100)
[2022-06-09 20:07] VITALS: BP 93/49; PULSE 71; RESP 18; O2SAT 99
--- NOTE | 2022-06-09 20:08 | PC.NURSE ---
Es from lab called critical h/h of 5.7/17.4. notified @ 2000
[2022-06-09 20:13] VITALS: BP 107/58; PULSE 80; RESP 18; O2SAT 99
--- NOTE | 2022-06-09 20:14 | PC.NURSE ---
d/t pt's GFR of 28, states to change CT A/P without, called radiology
--- NOTE | 2022-06-09 20:17 | ECG_ITS ---
APPROVED REPORT Exam: Resting ECG HR:76 bpm ECG Measurements Heart Rate 76 AXES CO 144 P 33 QRSd 73 QRS 66 QT 411 T 59 QTc 441 Conclusion SINUS RHYTHM Late r wave progression - unchanged from prior Essentially a NORMAL ECG UNCONFIRMED REPORT Electronically signed by : Frandy Schulz MD 06/10/2022 13:33:28
[2022-06-09 20:25] LABS: INR 0.92 (0.9-1.1)
[2022-06-09 20:39] LABS: Troponin I 0.06 ng/ml (0.00-0.034)
[2022-06-09 20:41] LABS: Occult Blood,Stool Positive (Negative)
--- NOTE | 2022-06-09 20:41 | PC.NURSE ---
pt back from CT scan
--- NOTE | 2022-06-09 20:42 | HMH.EDWEAK ---
Discharge Plan Disposition Patient Disposition: Admitted As Inpatient Chief Complaint: Weakness Clinical Impressions Clinical Impression: Acute upper gastrointestinal bleeding, Acute blood loss anemia (ABLA) Discharge ED Provider: Cody Kirkland Weakness HPI General Chief complaint: Weakness Stated complaint: abnormal labs Time Seen by Provider: 06/09/22 20:05 Mode of Arrival: Family Vehicle Source of Information: Patient, Relative and Medical Record Limitations: No Limitations Description of Symptoms (Recalled from ER Triage Doc. by RN): Pt c/o wekaness and black stool for 2 days. States she has been backed up for 2 days and took milk of mag, which caused her bowels to move. She was seen by Delmi Armijo today for the weakness and had labs drawn which revealed an Hgb of 5.8 and Hct 17.6. Pt denies any abd pain or n/v/d. History of Present Illness HPI Narrative: sent to ed for weakness and low hgb - has dark stool - no sig abd pain MD Complaint: generalized weakness Onset (ago): day(s) Duration: intermittent Location: generalized Migration: none Severity: moderate Associated symptoms: denies other symptoms Related Data Home Medications Medication Instructions Recorded Confirmed aspirin 81 mg tablet,delayed 81 mg PO DAILY heart health 11/13/20 06/09/22 release (Adult Low Dose Aspirin) alendronate 70 mg tablet 70 mg PO WEEKLY bone health 01/04/21 06/09/22 calcium carbonate 600 mg-vitamin 1 tab PO DAILY suppliment 01/04/21 06/09/22 D3 10 mcg (400 unit) tablet amlodipine 5 mg tablet 5 mg PO DAILY High blood pressure 06/09/22 06/09/22 lisinopril 20 mg tablet 20 mg PO DAILY High blood pressure 06/09/22 06/09/22 pravastatin 40 mg tablet 40 mg PO DAILY High cholesterol 06/09/22 06/09/22 Allergies Allergy/AdvReac Type Severity Reaction Status Date / Time Penicillins Allergy Severe S-SWELLS-OR Verified 06/09/22 13:05 AL/THROAT [facility] Disclaimer: The information contained in this section may have been updated after the patient was seen, as this information can be updated by other users. Medical History (Updated 06/09/22 @ 22:45 by VI Mendieta) Hyperlipidemia Hypertension Social History Smoking Status: Never smoker alcohol intake: never substance use type: denies use current occupational status: retired Travel in the last 8 weeks: None housing: house current occupational exposures/hazards: No caffeine: Yes ROS Obtained: Yes All systems reviewed & no additional complaints except as documented Physical Exam General General appearance: alert Head Head exam: normocephalic Eye Eye exam: Present PERRL and EOMI; Absent scleral icterus ENT ENT exam: Present mucous membranes moist Neck Neck exam: Present trachea midline Respiratory Respiratory exam: Present normal lung sounds bilaterally; Absent respiratory distress Cardiovascular Cardiovascular exam: Present regular rate and systolic murmur Abdominal Exam Abdominal exam: Present soft; Absent tenderness or guarding Rectal Exam Rectal exam: Present heme (+) stool and black stool Extremities Exam Extremities exam: Present full ROM Neurological Exam Neurological exam: Present alert and CN II-XII intact Skin Skin exam: Absent rash Medical Decision Making Medical Records Medical records reviewed: Yes I reviewed the patient's medical records. [facility] Inquiry Pt receiving controlled substance: No Vital Signs: 06/09/22 19:19 06/09/22 19:31 06/09/22 20:07 Temperature 98.1 F Temperature Source Oral Pulse Rate 72 71 Pulse Rate [Right] 81 Respiratory Rate 19 18 18 Blood Pressure 108/52 L 93/49 L Blood Pressure [Right Arm] 120/60 Blood Pressure Mean 80 72 Blood Pressure Mean [Right Arm] 80 Blood Pressure Source [Right Arm] Automatic Cuff 02 Sat by Pulse Oximetry 99 100 99 Oxygen Delivery Method Room Air Room Air 06/09/22 20:13 Temperature
--- NOTE | 2022-06-09 22:03 | PC.NURSE ---
Dr. Kirkland s/w hospitalist Latosha for admission
--- NOTE | 2022-06-09 22:28 | PC.NURSE ---
Patient admitted observation to [address] Gandhi with admitting dx of Suspected GI Bleed and Low H &H.
--- NOTE | 2022-06-09 22:36 | EXP.HP ---
History of Present Illness *Admission Date: 06/09/22 *Reason for visit:: abnormal lab values *History of present illness: This [facility] Disclaimer: The information contained in this section may have been updated after the patient was seen, as this information can be updated by other users. Medical History Hyperlipidemia Hypertension Social History Smoking Status: Never smoker alcohol intake: never substance use type: denies use current occupational status: retired Travel in the last 8 weeks: None housing: house current occupational exposures/hazards: No caffeine: Yes Review of Systems Constitutional Constitutional: Reports lethargy and Reports weakness Eyes Eyes: Reports system reviewed and no additional complaints, except as documented ENT Ears, Nose, Mouth, and Throat: Reports system reviewed and no additional complaints, except as documented *Cardiovascular Cardiovascular: Reports system reviewed and no additional complaints, except as documented *Respiratory Respiratory: Reports system reviewed and no additional complaints, except as documented *Gastrointestinal Gastrointestinal: Reports melena *Genitourinary Genitourinary: Reports system reviewed and no additional complaints, except as documented *Musculoskeletal Musculoskeletal: Reports system reviewed and no additional complaints, except as documented *Neurologic Neurologic: Reports system reviewed and no additional complaints, except as documented and Reports weakness Meds Home Medications and Allergies Home Medications Medication Instructions Recorded Confirmed Type aspirin 81 mg tablet,delayed 81 mg PO DAILY heart health 11/13/20 06/09/22 History release (Adult Low Dose Aspirin) alendronate 70 mg tablet 70 mg PO WEEKLY bone health 01/04/21 06/09/22 History calcium carbonate 600 mg-vitamin 1 tab PO DAILY suppliment 01/04/21 06/09/22 History D3 10 mcg (400 unit) tablet amlodipine 5 mg tablet 5 mg PO DAILY High blood pressure 06/09/22 06/09/22 History lisinopril 20 mg tablet 20 mg PO DAILY High blood pressure 06/09/22 06/09/22 History pravastatin 40 mg tablet 40 mg PO DAILY High cholesterol 06/09/22 06/09/22 History New Prescriptions to Start Prescriptions: Allergies Allergy/AdvReac Type Severity Reaction Status Date / Time Penicillins Allergy Severe S-SWELLS-OR Verified 06/09/22 13:05 AL/THROAT Exam Data for Last 24 hours Vital signs and Labs for Last 24 Hours: Temp Pulse Resp BP Pulse Ox 98.1 F 80 18 107/58 L 99 06/09/22 19:19 06/09/22 20:13 06/09/22 20:13 06/09/22 20:13 06/09/22 20:13 Laboratory Results - last 24 hr 06/09/22 19:30: WBC 5.6, RBC 1.82 L*, Hgb 5.7 L*, Hct 17.4 L*, MCV 95.6, MCH 31.5 H, MCHC 32.9, RDW 15.2, Plt Count 219, MPV 8.7, Neut % (Auto) 62.3, Lymph % (Auto) 25.1, B[place] % (Auto) 8.4, Eos % (Auto) 3.7, Baso % (Auto) 0.5, Neut # (Auto) 3.5, Lymph # (Auto) 1.4, B[place] # (Auto) 0.5, Eos # (Auto) 0.2, Baso # (Auto) 0.0 06/09/22 19:30: Sodium 138, Potassium 4.5, Chloride 107, Carbon Dioxide 23, Anion Gap 12.5, BUN 63 H, Creatinine 1.70 H, Estimated Creat Clear 19, Estimated GFR 28 L, Est GFR ( Amer) 34 L, Glucose 97, Calcium 8.4, Total Bilirubin 0.2, AST 28 D, ALT 13 D, Alkaline Phosphatase 44, Total Protein 6.1 L, Albumin 3.7, Globulin 2.4, Albumin/Globulin Ratio 1.5 06/09/22 19:30: Blood Type O Positive, Antibody Screen Negative, Crossmatch (AHG) See Detail 06/09/22 19:30: PT 10.0 L, INR 0.92 06/09/22 19:30: Troponin I 0.06 H 06/09/22 19:43: SARS-CoV-2 (PCR) Not detected, Influenza A Untype (PCR) Not detected, Influenza Type B (PCR) Not detected 06/09/22 20:21: Stool Occult Blood Positive A I & O for Last 24 hours: Intake & Output 06/06/22 06/07/22 06/08/22 06/09/22 23:59 23:59 23:59 23:59 Weight 51.256 kg Constitutional Constitutional: no acute di
[2022-06-09 22:57] VITALS: BP 158/72; PULSE 72; RESP 20; TEMP 36.7; O2SAT 97
--- NOTE | 2022-06-09 23:07 | PC.NURSE ---
pt arrived to floor at this time
[2022-06-09 23:10] LABS: Iron 85 ug/dL (37-170)
[2022-06-09 23:19] LABS: Total Iron Binding Capacity 307 ug/dL (265-497)
[2022-06-09 23:24] LABS: Folate 7.55 ng/mL; Vitamin B12 579 pg/mL (239-931)
[2022-06-09 23:28] LABS: Troponin I 0.06 ng/ml (0.00-0.034)
[2022-06-09 23:38] VITALS: BP 114/65; PULSE 72; RESP 20; TEMP 36.5; O2SAT 97
[2022-06-09 23:40] VITALS: BMI 21.3
[2022-06-10] VITALS (36 sets, daily range): BP systolic 102–136; BP diastolic 51–75; PULSE 16–96; RESP 15–20; TEMP 36.3–36.7; O2SAT 92–100; BMI 19.8
--- NOTE | 2022-06-10 02:58 | PC.NURSE ---
Pt A&OX4. Has no complaints other than weakness. She tolerated 1 unit of blood. VSS at this time. Post H&H ordered. SCDs in place. Call light within reach.
[2022-06-10 04:09] LABS: Hemoglobin 7.6 g/dL (12.2-16.2)
[2022-06-10 04:35] LABS: Appearance,Urine CLEAR (Clear); Bilirubin,Urine Negative (Negative); Blood, Urine Negative (Negative); Color,Urine YELLOW (Yellow); Glucose,Urine (UA) Negative (Negative); Ketones,Urine Negative (Negative); Leukocyte Esterase,Urine 1+ (Negative); Microscopic, Urine URINE MICROSCOPIC (MICROSCOPIC); Nitrate,Urine Negative (Negative); Protein,Urine Negative (Negative); Urobilinogen,Urine 0.2 EU/dl (0.2)
[2022-06-10 04:47] LABS: Troponin I 0.07 ng/ml (0.00-0.034)
--- NOTE | 2022-06-10 05:42 | PC.NURSE ---
2nd unit of blood transfusing at this time. Pt tolerating well.
--- NOTE | 2022-06-10 07:12 | HMH.PHAINT1 ---
Pharmacy Intervention Comments: MEDICATION RECONCILIATION COMPLETED ON PATIENT USING EXTERNAL FILL HISTORY FROM PHARMACY. -NAYA NOBLE, ROLANDOD
--- NOTE | 2022-06-10 08:45 | EXP.SURG.CON ---
History of Present Illness *Admission Date: 06/09/22 *Reason for visit:: Melena, hemoglobin less than 5 *History of present illness: Patient is a 86-year-old female. She has had some intermittent constipation. She took some milk of magnesia and had a large black stool. She had presented to her primary care provider's office yesterday with complaints of a 3 to 4-day history of weakness, dizziness, blurry vision. She was found to have anemia and was sent to the emergency department. She was admitted for inpatient management. Patient denies vomiting or hematemesis. Denies symptoms consistent with hematochezia. Denies prior history of ulcers. Denies NSAID use other than 81 mg aspirin. She had a CT scan done which revealed apparent thickening of the gastric wall particularly in the region of the fundus which would may be secondary to incomplete digestion. Changes of gastritis could not be excluded. Colonic diverticulosis. Focal bowel wall thickening in the region of the sigmoid colon. Changes of chronic diverticulitis could not be excluded. She was confirmed to have a hemoglobin of 5.7. It appears as though her baseline hemoglobin is approximately 11. She was transfused a single unit with hemoglobin of 7.6. Stool for occult blood is positive. [facility] Disclaimer: The information contained in this section may have been updated after the patient was seen, as this information can be updated by other users. Medical History (Updated 06/09/22 @ 22:45 by VI Mendieta) Hyperlipidemia Hypertension Surgical History (Updated 06/10/22 @ 00:21 by Radha Arana RN) H/O lumpectomy S/P lumpectomy, right breast Family History (Updated 06/10/22 @ 00:20 by Radha rAana RN) Diabetes Heart attack Breast cancer Hypertension Stroke Social History (Updated 06/10/22 @ 02:36 by Radha Arana RN) Smoking Status: Never smoker alcohol intake: never substance use type: denies use current occupational status: retired Travel in the last 8 weeks: None housing: house current occupational exposures/hazards: No caffeine: Yes Review of Systems Constitutional Constitutional: Reports weakness *Neurologic Neurologic: Reports system reviewed and no additional complaints, except as documented and Reports weakness Meds Home Medications and Allergies Home Medications Medication Instructions Recorded Confirmed Type aspirin 81 mg tablet,delayed 81 mg PO DAILY heart [facility] 11/13/20 06/09/22 History release (Adult Low Dose Aspirin) calcium carbonate 600 mg-vitamin 1 tab PO DAILY Supplement 01/04/21 06/09/22 History D3 10 mcg (400 unit) tablet amlodipine 5 mg tablet 5 mg PO DAILY Hypertension 06/09/22 06/09/22 History lisinopril 20 mg tablet 20 mg PO DAILY Hypertension 06/09/22 06/09/22 History pravastatin 40 mg tablet 40 mg PO DAILY Cholesterol 06/09/22 06/09/22 History New Prescriptions to Start Prescriptions: Allergies Allergy/AdvReac Type Severity Reaction Status Date / Time Penicillins Allergy Severe S-SWELLS-OR Verified 06/09/22 13:05 AL/THROAT Exam (Inpt) Vital signs and Labs for Last 24 Hours: Temp Pulse Resp BP Pulse Ox 97.6 F 70 16 125/66 94 L 06/10/22 08:00 06/10/22 08:00 06/10/22 08:00 06/10/22 08:00 06/10/22 08:00 Laboratory Results - last 24 hr 06/09/22 04:10: Urine Color Yellow, Urine Appearance Clear, Urine pH 6.0, Ur Specific [place] 1.020, Urine Protein Negative, Urine Glucose (UA) Negative, Urine Ketones Negative, Urine Blood Negative, Urine Nitrate Negative, Urine Bilirubin Negative, Urine Urobilinogen 0.2, Ur Leukocyte Esterase 1+ A, Urine RBC None, Urine WBC 3-5, Ur Squamous Epith Cells None, Urine Bacteria None 06/09/22 13:46: Blood Type Confirm O Positive 06/09/22 19:30: WBC 5.6, RBC 1.82 L*, Hgb 5.7 L*, Hct 17.4 L*, MCV 95.6, MCH 31.5 H, MCHC 32.9, RDW 15.2, Plt Count 219, MPV 8.7, Neut % (Auto) 62.3, Lymph % (Auto) 25.1, [place] % (Auto) 8.4, Eos
--- NOTE | 2022-06-10 09:15 | CA_ITS ---
APPROVED REPORT EXAM: Comprehensive 2D, Doppler, and color-flow Echocardiogram Data Reviewer: Nona Martin CRT Ht: 5 ft 6 in Wt: 126lbs BSA: 1.64 BP: 107/58 mmHg Indications: Murmur, Hyperlipidemia, Hypertension/HDD anemia Hgb 9.2 after 2 units of blood. PRE-OP EGD TODAY 2D Dimensions LVOT 1.61 cm (M/F) 1.5-2.5 LA Volume 57.40 mL LA Volume Index 34.20 mL/m2 (M/F) 16-34 M-Mode Dimensions RVDd 2.52 cm (0.9-2.6) LA Diam 3.97 cm (1.9-4.0) LVDd 3.69 cm (3.5-5.7) Ao Diam 3.44 cm (2.0-3.7) LVDs 1.79 cm (3.5-5.7) IVSd 1.63 cm (0.6-1.1) PWd 1.23 cm (0.6-1.1) EF (Teich) 83.40% FS 51.50% EDV (Teich) 57.80 mL TAPSE 1.61 (<1.7) ESV (Teich) 9.60 mL LV Diastology E/A Ratio 0.58 MED E' 6.50 (< 7 cm/sec) MED A' 11.60 cm/s E'/MED E' Ratio 16.06 (>14) LAT E' 7.40 (<10 cm/sec) LAT A' 8.00 cm/s E/LAT E' Ratio 14.11 (>14) Aortic Valve LVOT Max 203.00 (70-110 cm/s) LVOT VTI 43.61 cm AoV Peak Silvestre. 398.00 (50-130 cm/s) AI PHT 488.00 ms AO Peak GR. 64.00 mmHg AO Mean GR. 40.10 (<5 mmHg) AO VTI 99.04 (18-25 cm) ARSLAN (VTI) 0.90 (2.5-4.5 cm2) Mitral Valve MV A Velocity 179.00 (40-130 cm/s) E/A Ratio 0.58 MV PHT 103.00 ms Tricuspid Valve TR P. Velocity 260.00 cm/s RAP Estimate 10.00 mmHg RVSP 37.10 mmHg Left Ventricle Left atrium is moderately enlarged, left ventricle is normal size, moderate concentric left ventricular hypertrophy, estimated ejection fraction 55% with no regional wall motion abnormality, grade 1 diastolic dysfunction seen without tissue Doppler evidence of raise left atrial pressure. Right Ventricle Right atrium and right ventricle are normal size and contractility. Aortic Valve Aortic valve is thickened and calcified with severe restriction in the leaflet mobility, the mean gradient across aortic valve is 50 mmHg, valve area is 0.9 cm???, represents severe aortic stenosis, there is mild aortic insufficiency. Mitral Valve Mitral valve has dense mitral annular calcification which extends in both anterior and posterior mitral leaflet, there is no significant mitral inflow obstruction, there is mild mitral regurgitation. Tricuspid Valve Tricuspid valve is grossly normal, there is mild tricuspid regurgitation, tricuspid regurgitation jet velocity is inadequate for calculation of the right ventricular systolic pressure. Pulmonic Valve Pulmonic valve is poorly visualized. Great Vessels Aortic root is normal size. Inferior vena cava is mildly dilated with less than 50% inspiratory collapse. Pericardium No significant pericardial effusion noted. Conclusion 1. Moderately enlarged left atrium, normal left ventricular size moderate concentric left ventricular hypertrophy, estimated ejection fraction 55% with no regional wall motion abnormality, grade 1 diastolic dysfunction seen without tissue Doppler evidence of raise left atrial pressure. 2. Thickened and calcified aortic valve with mean gradient across aortic valve of 50 mmHg, valve area 0.9 cm??? represents severe aortic stenosis, there is mild aortic insufficiency. 3. Thickened and calcified mitral annulus and mitral valve without significant mitral stenosis, there is mild mitral regurgitation. 4. Mild tricuspid regurgitation. 5. No significant pericardial effusion noted. 6. Inferior vena cava is mildly dilated with less than 50% inspiratory collapse. Electronically signed by : Serjio Acosta MD 06/11/2022 06:05:55
[2022-06-10 09:48] LABS: Anion Gap 7.2 mEq/L (5-15); Blood Urea Nitrogen 47 mg/dl (7-17); Calcium 7.8 mg/dl (8.4-10.2); Carbon Dioxide 22 mmol/L (22.0-30.0); Chloride 112 mmol/L (98-107); Chol/HDL Ratio 3.1 (1-3.5); Cholesterol 135 mg/dl (140-200); Creatinine Clearance Estimated 28 mL/min (50-200); Estimated Glomerular Filt Rate 39 ml/min (>60); GFR (African American) 47 ML/MIN (>60); Glucose 88 mg/dl (74-100); HDL Cholesterol 43 mg/dl (40-60); Potassium 4.2 mmoL/L (3.5-5.1); Sodium 137 mmol/L (136-145); Triglycerides 90 mg/dl (30-150); VLDL Cholesterol 18 mg/dL (0-40)
[2022-06-10 09:57] LABS: Basophils % 0.9 % (0.1-2.0); Eosinophils # 0.3 K/mm3 (0.0-0.4); Eosinophils % 5.2 % (0.1-12.0); Hematocrit 26.5 % (37.0-47.0); Lymphocytes # 1.1 K/mm3 (0.7-4.5); Lymphocytes % 22.9 % (10-50); Mean Corpuscular HGB Conc 34.6 g/dL (31.8-35.4); Mean Corpuscular Hemoglobin 31.7 pg (27.0-31.2); Mean Corpuscular Volume 91.9 fl (81-99); Monocytes # 0.4 K/mm3 (0.1-1.0); Monocytes % 9.3 % (1.7-9.3); Neutrophils # 2.9 K/mm3 (1.8-7.8); Neutrophils % 61.7 % (37.0-80.0); Platelet Count 149 K/mm3 (142-424); Red Blood Count 2.89 M/mm3 (4.20-5.40); Red Cell Distribution Width 15.9 % (11.5-17.5); White Blood Count 4.7 K/mm3 (4.8-10.8)
[2022-06-10 09:58] LABS: Direct LDL Cholesterol 67.83 mg/dL (100-129)
[2022-06-10 10:00] LABS: Hemoglobin 9.2 g/dL (12.2-16.2)
--- NOTE | 2022-06-10 11:07 | PC.NURSE ---
pt left unit with Pre-op staff at 1052
--- NOTE | 2022-06-10 11:07 | EXP.ANES.CKL ---
[facility] Disclaimer: The information contained in this section may have been updated after the patient was seen, as this information can be updated by other users. Medical History (Updated 06/09/22 @ 22:45 by VI Mendieta) Hyperlipidemia Hypertension Surgical History (Updated 06/10/22 @ 00:21 by Radha Arana, MARIA LUZ) H/O lumpectomy S/P lumpectomy, right breast Family History (Updated 06/10/22 @ 00:20 by Radha Arana, MARIA LUZ) Other Breast cancer Diabetes Heart attack Hypertension Stroke Social History (Updated 06/10/22 @ 02:36 by Radha Arana, MARIA LUZ) Smoking Status: Never smoker alcohol intake: never substance use type: denies use current occupational status: retired Travel in the last 8 weeks: None housing: house current occupational exposures/hazards: No caffeine: Yes [facility] Anesthesia Checklist Patient Identification Patient Identification: Arm Band Structural Data Admitted From: Inpatient Planned Operative Procedure/s: EGD Consent for Planned Operative Procedure(s) Verified: Yes Verified Documents: Surgical Consent and History and Physical NPO Status Verified Time NPO: 00:00 Additional verifications Anesthesia Reactions: No Hx Blood Transfusions: No Blood Transfusion Reaction: No Airway Assessment C-Spine Mobility Assessed: Yes TMJ Mobility Assessed: Yes Dentition: Dentures-good fit (upper removed) Neurological Assessment Level of Consciousness: Awake and Alert Anesthesia Plan Anesthesia Risk discussed: Yes Anesthesia Plan: Verified ASA Class: III Anesthesia Type: MAC
--- NOTE | 2022-06-10 11:48 | HMH.SCOPE ---
Procedure: Date: 06/10/22 Patient Date of :: 1935 Procedure Performed:: Esophagogastroduodenoscopy with hemostatic measures for control of bleeding Indications:: Patient is 86-year-old female who was admitted with findings consistent with symptomatic anemia and upper GI bleeding Performing Provider:: Braulio Dc MD Referring Provider:: Melvin Gonzalez Sedation:: MAC sedation Procedure:: Patient was taken to endoscopy procedure room. She was positioned in lateral decubitus position. Adequate intravenous sedation was achieved. Olympus endoscope was inserted via the oropharynx. Esophagus was cannulated. There were findings possibly consistent with mild esophageal dysmotility. Gastroesophageal junction was encountered at approximately 32 cm. There was nonbleeding shallow erosion at the gastroesophageal junction and findings consistent with beginnings of Schatzki's ring. Stomach was cannulated and insufflated. Retroflexion revealed a moderate to moderately large sliding hiatal hernia. Overall gastric lumen appeared relatively unremarkable. Pylorus was traversed. There was a very faint nonerosive duodenitis within the bulb. Endoscope was advanced a generous distance into the duodenum. In what appeared to be the distal duodenum there was a punctate area of active slow oozing. As irrigation was used to clear the area there was reaccumulation very slowly of blood. Did not appear to be an ulcer but this could be consistent with focal AVM or Dieulafoy lesion. This did not appear to be emanating from the ampulla although visualization of this area of the small bowel is somewhat difficult. Ultimately with some difficulty several hemoclips were deployed and submucosal injection of epinephrine was carried out resulting in what appeared to be good hemostasis. Once again, the definite ampulla was not able to be clearly identified but this appeared to be well distal to the ampulla and the distal duodenum. The endoscope was able to be advanced beyond this and then slowly withdrawn into the gastric lumen. The area was reinspected several times to assure hemostasis. Endoscope was then withdrawn Findings:: Minor esophageal dysmotility Shallow erosion of the gastroesophageal junction Beginnings of Schatzki's ring at gastroesophageal junction GE junction at approximately 32 cm Minor duodenitis in the duodenal bulb Punctate area of slow active hemorrhagic oozing and distal duodenum. Hemostasis achieved with submucosal injection of epinephrine and deployment of Hemoclip x3 Recommendations:: This is a difficult area to access endoscopically. Continue to monitor hemoglobin for stability. Given the lack of clear identification of the ampulla monitor liver function tests although this lesion appeared to be well distal of the ampulla in the distal duodenum near the ligament of Treitz. Complications:: None immediately apparent Estimated blood obtained (mL): 3
--- NOTE | 2022-06-10 11:53 | EXP.ACUTE.PN ---
Subjective *Date: 06/10/22 *Time: 12:13 Interval history: Pleasant on exam this morning. Very talkative. Denies any further melenic stools. Hemoglobin responding well to transfusion. Denies chest pain, abdominal pain, nausea, vomiting, diarrhea. Recall intact. No active signs of bleeding. Patient n.p.o. in anticipation of EGD. Medical Exam Vital signs and Labs for Last 24 Hours: Vital Signs Temp Pulse Pulse Pulse Resp BP BP 06/10/22 11:45 97.4 F L 67 16 102/51 L 06/10/22 09:00 97.9 F 61 16 127/64 06/10/22 08:00 70 06/10/22 07:40 60 06/10/22 08:00 97.6 F 62 16 125/66 06/10/22 07:40 97.6 F 60 16 125/63 06/10/22 06:40 97.9 F 63 15 118/61 06/10/22 06:25 97.9 F 62 15 114/58 L 06/10/22 06:10 97.8 F 62 16 109/57 L 06/10/22 05:55 97.7 F 60 15 114/64 06/10/22 05:50 97.7 F 62 15 120/61 06/10/22 05:45 97.8 F 68 19 111/58 L 06/10/22 05:40 97.6 F 65 16 118/62 06/10/22 05:30 97.6 F 70 20 107/60 L 06/10/22 04:17 70 06/10/22 03:50 97.9 F 65 18 128/61 06/10/22 02:50 98.0 F 65 18 132/62 06/10/22 02:10 98.0 F 66 18 136/66 06/10/22 01:10 98.0 F 65 17 124/62 06/10/22 00:55 98.0 F 64 17 129/56 L 06/10/22 00:40 98.0 F 66 16 116/59 L 06/10/22 00:25 97.9 F 66 16 119/58 L 06/10/22 00:20 97.9 F 68 19 116/57 L 06/09/22 23:38 97.7 F 72 20 114/65 06/10/22 00:15 97.8 F 67 18 117/59 L 06/10/22 00:10 97.8 F 66 19 124/58 L 06/10/22 00:02 98.0 F 67 19 110/59 L 06/09/22 22:57 98.0 F 72 20 158/72 H 06/09/22 20:13 80 18 107/58 L 06/09/22 20:07 71 18 93/49 L 06/09/22 19:31 72 18 108/52 L 06/09/22 19:19 98.1 F 81 19 120/60 Pulse Ox 06/10/22 11:45 96 06/10/22 09:00 96 06/10/22 08:00 06/10/22 07:40 94 L 06/10/22 08:00 94 L 06/10/22 07:40 96 06/10/22 06:40 95 06/10/22 06:25 95 06/10/22 06:10 95 06/10/22 05:55 96 06/10/22 05:50 95 06/10/22 05:45 95 06/10/22 05:40 95 06/10/22 05:30 97 06/10/22 04:17 06/10/22 03:50 98 06/10/22 02:50 97 06/10/22 02:10 98 06/10/22 01:10 97 06/10/22 00:55 97 06/10/22 00:40 99 06/10/22 00:25 97 06/10/22 00:20 100 06/09/22 23:38 97 06/10/22 00:15 97 06/10/22 00:10 100 06/10/22 00:02 98 06/09/22 22:57 06/09/22 20:13 99 06/09/22 20:07 99 06/09/22 19:31 100 06/09/22 19:19 99 Intake and Output 06/09/22 06/10/22 06/10/22 23:59 07:59 15:59 Intake Total 1000 / 1000 350 / 681 331 / 681 Output Total 0 / 0 800 / 800 Balance 1000 / 1000 -450 / -119 331 / -119 Intake: Intake, Other Amount 50 / 131 81 / 131 Red Blood Cells Unit 81 / 81 [id number] Red Blood Cells Unit 50 / 50 [id number] Intake, Total IV Amount 1000 / 1000 50 / 50 Pantoprazole Sodium 80 mg In 0. 50 / 50 9 % Sodium Chloride 100 ml @ 10 mls/hr IV .Q10H [facility] Rx#: [id number] Intake (Blood Product) Amt 250 / 500 250 / 500 Red Blood Cells Unit 0 / 250 250 / 250 [id number] Red Blood Cells Unit 250 / 250 [id number] Output: Output, Urine Amount 0 / 0 800 / 800 Other: Weight 52.645 kg 57.238 kg Patient Weight 06/10/22 23:59 Weight 57.238 kg Laboratory Results - last 24 hr 06/09/22 04:10: Urine Color Yellow, Urine Appearance Clear, Urine pH 6.0, Ur Specific [place] 1.020, Urine Protein Negative, Urine Glucose (UA) Negative, Urine Ketones Negative, Urine Blood Negative, Urine Nitrate Negative, Urine Bilirubin Negative, Urine Urobilinogen 0.2, Ur Leukocyte Esterase 1+ A, Urine RBC None, Urine WBC 3-5, Ur Squamous Epith Cells None, Urine Bacteria None 06/09/22 13:46: Blood Type Confirm O Positive 06/09/22 19:30: WBC 5.6, RBC 1.82 L*, Hgb 5.7 L*, Hct 17.4 L*, MCV 95.6, MCH 31.5 H, MCHC 32.9, RDW 15.2, Plt Count 219, MPV 8.7, Neut % (A
--- NOTE | 2022-06-10 12:18 | XR_ITS ---
FINAL REPORT CLINICAL HISTORY: GI BLEED FINDINGS: A PA view of the chest was obtained. The cardiac and mediastinal silhouettes are within normal limits. The lungs are clear. There is no free air beneath the diaphragm. Upright and supine views of the abdomen reveal a normal bowel gas pattern. There are no pathologic calcifications. There is moderate scoliosis. IMPRESSION: No bowel obstruction or free air. Reviewed, Interpreted and Dictated by Rosemary Loomis MD Transcribed by Nelia Christianson Authenticated and [facility]
--- NOTE | 2022-06-10 15:20 | PC.NURSE ---
pt has rested well since returning from EGD this am. was contacted for diet order at 1352. pt ordered clear liquid diet with no red dye juice or jello. pt is a/o x 4. pt is slightly weak and appeared to struggle to her feet from bsc. lungs are clear throughout. bowel sounds are active. nad noted.
[2022-06-11] VITALS: BP 149/69; PULSE 68; RESP 16; TEMP 37; O2SAT 96
[2022-06-11 03:22] VITALS: BP 126/69; PULSE 63; RESP 16; O2SAT 97
[2022-06-11 03:23] VITALS: BMI 18.8
[2022-06-11 06:50] LABS: Basophils % 0.3 % (0.1-2.0); Eosinophils # 0.2 K/mm3 (0.0-0.4); Eosinophils % 4.2 % (0.1-12.0); Hematocrit 27.1 % (37.0-47.0); Hemoglobin 9.1 g/dL (12.2-16.2); Lymphocytes # 0.7 K/mm3 (0.7-4.5); Mean Corpuscular HGB Conc 33.6 g/dL (31.8-35.4); Mean Corpuscular Hemoglobin 31.4 pg (27.0-31.2); Mean Corpuscular Volume 93.4 fl (81-99); Mean Platelet Volume 8.4 fl (7.4-10.4); Monocytes # 0.4 K/mm3 (0.1-1.0); Monocytes % 7.4 % (1.7-9.3); Neutrophils # 3.8 K/mm3 (1.8-7.8); Neutrophils % 74.2 % (37.0-80.0); Platelet Count 155 K/mm3 (142-424); White Blood Count 5.1 K/mm3 (4.8-10.8)
[2022-06-11 06:59] LABS: Alanine Aminotransferase 9 U/L (12-78); Albumin/Globulin Ratio 1.4 (1.1-1.8); Alkaline Phosphatase 42 U/L (38-126); Anion Gap 7.2 mEq/L (5-15); Aspartate Amino Transferase 21 U/L (14-36); Bilirubin,Total 0.5 mg/dl (0.2-1.3); Blood Urea Nitrogen 31 mg/dl (7-17); Calcium 8.1 mg/dl (8.4-10.2); Carbon Dioxide 21 mmol/L (22.0-30.0); Chloride 113 mmol/L (98-107); Creatinine Clearance Estimated 26 mL/min (50-200); Estimated Glomerular Filt Rate 39 ml/min (>60); GFR (African American) 47 ML/MIN (>60); Globulin 2.2 g/dL (1.3-3.2); Glucose 87 mg/dl (74-100); Magnesium 2.1 mg/dl (1.6-2.3); Potassium 4.2 mmoL/L (3.5-5.1); Sodium 137 mmol/L (136-145); Total Protein,Serum 5.2 g/dl (6.3-8.2)
--- NOTE | 2022-06-11 07:19 | EXP.SURG.PN ---
Subjective Narrative: Patient has been anxious to go home. Tolerating clear liquid diet. No clinical bleeding. Exam Data for Last 24 hours Vital signs and Labs for Last 24 Hours: Temp Pulse Resp BP Pulse Ox 98.6 F 63 16 126/69 97 06/11/22 00:00 06/11/22 03:22 06/11/22 03:22 06/11/22 03:22 06/11/22 03:22 Laboratory Results - last 24 hr 06/09/22 19:30: Crossmatch (AHG) See Detail 06/10/22 09:09: WBC 4.7 L, RBC 2.89 L D, Hgb 9.2 L D, Hct 26.5 L, MCV 91.9, MCH 31.7 H, MCHC 34.6, RDW 15.9, Plt Count 149 D, MPV 9.0, Neut % (Auto) 61.7, Lymph % (Auto) 22.9, [place] % (Auto) 9.3, Eos % (Auto) 5.2, Baso % (Auto) 0.9, Neut # (Auto) 2.9, Lymph # (Auto) 1.1, [place] # (Auto) 0.4, Eos # (Auto) 0.3, Baso # (Auto) 0.0 06/10/22 09:09: Sodium 137, Potassium 4.2, Chloride 112 H, Carbon Dioxide 22, Anion Gap 7.2, BUN 47 H D, Creatinine 1.30 H D, Estimated Creat Clear 28, Estimated GFR 39 L, Est GFR ( Amer) 47 L D, Glucose 88, Calcium 7.8 L, Triglycerides 90, Cholesterol 135 L, LDL Cholesterol Direct 67.83 L, VLDL Cholesterol 18, HDL Cholesterol 43, Cholesterol/HDL Ratio 3.1 06/11/22 06:38: WBC 5.1, RBC 2.90 L, Hgb 9.1 L, Hct 27.1 L, MCV 93.4, MCH 31.4 H, MCHC 33.6, RDW 16.0, Plt Count 155, MPV 8.4, Neut % (Auto) 74.2, Lymph % (Auto) 14.0, [place] % (Auto) 7.4, Eos % (Auto) 4.2, Baso % (Auto) 0.3, Neut # (Auto) 3.8, Lymph # (Auto) 0.7, [place] # (Auto) 0.4, Eos # (Auto) 0.2, Baso # (Auto) 0.0 06/11/22 06:38: Sodium 137, Potassium 4.2, Chloride 113 H, Carbon Dioxide 21 L, Anion Gap 7.2, BUN 31 H D, Creatinine 1.30 H, Estimated Creat Clear 26, Estimated GFR 39 L, Est GFR ( Amer) 47 L, Glucose 87, Calcium 8.1 L, Magnesium 2.1, Total Bilirubin 0.5, AST 21, ALT 9 L D, Alkaline Phosphatase 42, Total Protein 5.2 L, Albumin 3.0 L D, Globulin 2.2, Albumin/Globulin Ratio 1.4 I & O for Last 24 hours: Intake & Output 06/08/22 06/09/22 06/10/22 06/11/22 11:59 11:59 11:59 11:59 Intake Total 1681 / 1681 500 / 500 Output Total 800 / 800 800 / 800 Balance 881 / 881 -300 / -300 Weight 126 lb 3.004 oz 120 lb 7 oz Microbiology Reports for the Last 24 Hours: Microbiology 06/09/22 04:10 Urine,Clean Catch Urine Culture - Preliminary NO GROWTH AFTER 24 HOURS Constitutional Comments: Resting comfortably Progress Note: A&P Assessment and plan (1) Anemia: Status: Acute (2) Hypertension: Status: Chronic (3) Hyperlipidemia: Status: Chronic (4) Melena: Status: Acute (5) Murmur: Status: Acute (6) NSTEMI (non-ST elevated myocardial infarction): Status: Acute Assessment and Plan Assessment and Plan for All Diagnoses:: Hemoglobin stable. Liver function test within normal limits. Plan to advance diet.
[2022-06-11 07:49] VITALS: BP 127/64; PULSE 61; RESP 17; TEMP 36.4; O2SAT 99
--- NOTE | 2022-06-11 07:55 | EXP.DC.SUM ---
General Admission date:: 06/09/22 Discharge date: 06/11/22 HPI HPI HPI: Patient is a 86-year-old female. She has had some intermittent constipation. She took some milk of magnesia and had a large black stool. She had presented to her primary care provider's office yesterday with complaints of a 3 to 4-day history of weakness, dizziness, blurry vision. She was found to have anemia and was sent to the emergency department. She was admitted for inpatient management. Patient denies vomiting or hematemesis. Denies symptoms consistent with hematochezia. Denies prior history of ulcers. Denies NSAID use other than 81 mg aspirin. She had a CT scan done which revealed apparent thickening of the gastric wall particularly in the region of the fundus which would may be secondary to incomplete digestion. Changes of gastritis could not be excluded. Colonic diverticulosis. Focal bowel wall thickening in the region of the sigmoid colon. Changes of chronic diverticulitis could not be excluded. She was confirmed to have a hemoglobin of 5.7. It appears as though her baseline hemoglobin is approximately 11. She was transfused a single unit with hemoglobin of 7.6. Stool for occult blood is positive. Hospital Course Hospital Course Hospital Course: 86-year-old female with suspected upper GI bleed.? Presented with melenic stools and low hemoglobin.? Surgery consulted, planning for EGD this morning.? Responding well to transfusion this morning.? Problems addressed as follows: Melena Upper GI bleed - Labs reviewed, Hgb 5.7 on admission. Transfused 1 unit with improvement to 7.6. Received a second unit with continued improvement. Surgery consulted, patient taken for EGD. Identified small bleeding lesion necessitating epi injection and 3 clips. No further signs of bleeding. Was started on Protonix IV. Plan to continue Protonix daily at discharge. Tolerating advancement in diet. Medically stable to discharge home. Anemia - Likely related to blood loss. Anemia panel reviewed, normal iron studies and B12. Responded well to transfusion. Hemoglobin improved to 9.2 morning of 06/11. Repeated in the afternoon prior to discharge, remained stable at 9.1. No other signs of bleeding. No further melenic stools or bright red blood per rectum. Patient clinically feeling better since improving anemia. NSTEMI Murmur - Murmur previously identified by PCP, had appointment scheduled with cardiology on 06/10. Fortunately missed this appointment due to her admission for GI bleed. Echo obtained during admission showing aortic stenosis with an area of 0.9 cm. Have scheduled for close follow-up next week with cardiology to discuss further treatment management. EF normal at 55%. Patient hemodynamically stable, on room air, not significantly symptomatic at this time necessitating inpatient treatment. Stressed the importance of keeping her appointment with cardiology next week. No chest pain. Defer further management to cardiology in the outpatient setting HLD: Resume home regimen? HTN: Resume home regimen Exam Data for Last 24 hours Vital signs and Labs for Last 24 Hours: Temp Pulse Resp BP Pulse Ox 98.6 F 63 16 126/69 97 06/11/22 00:00 06/11/22 03:22 06/11/22 03:22 06/11/22 03:22 06/11/22 03:22 Laboratory Results - last 24 hr 06/09/22 19:30: Crossmatch (AHG) See Detail 06/10/22 09:09: WBC 4.7 L, RBC 2.89 L D, Hgb 9.2 L D, Hct 26.5 L, MCV 91.9, MCH 31.7 H, MCHC 34.6, RDW 15.9, Plt Count 149 D, MPV 9.0, Neut % (Auto) 61.7, Lymph % (Auto) 22.9, [place] % (Auto) 9.3, Eos % (Auto) 5.2, Baso % (Auto) 0.9, Neut # (Auto) 2.9, Lymph # (Auto) 1.1, [place] # (Auto) 0.4, Eos # (Auto) 0.3, Baso # (Auto) 0.0 06/10/22 09:09: Sodium 137, Potassium 4.2, Chloride 112 H, Carbon Dioxide 22, Anion Gap 7.2, BUN 47 H D, Creatinine 1.30 H D, Estimated Creat Clear 28, Estimated GFR 39 L, Est GFR ( Amer) 47 L D, Glucose 88, Calcium 7.8 L, Triglycerides 90, Cholesterol
--- NOTE | 2022-06-11 09:50 | HMH.OTEV ---
OT Inpatient Evaluation Rehab OT IP Evaluation Start: 06/11/22 08:58 Freq: ONCE Status: Active Protocol: [facility]22 09[facility]39 [facility] (Rec: 06/11/22 09[facility]49 [id number] Rehab OT IP Assessment Subjective History Pt is oriented x3 person, place, and . Pt was agreeable to engage in therapy evaluation. Pt was admitted to [facility] on 06/09/22 due to abnormal lab values. She reports that she is independent in all ADLs and IADLs. Pt reports that she is independent in driving and grocery shopping. She reports that her sister and daughter in law have helped with grocery shopping when she was sick. Pt reports that she lives alone and uses a cane for functional mobility. Pt has a past medical history of the following: Hyperlipidemia Hypertension Subjective I am blessed. Objective Patient Orientation Person,Place,Birthday Upper Extremity Gross ROM WNL Bed Mobility bed mobility-scooting,bed mobility - supine/sit,bed mobility - rolling Assist Level Independent Transfer Training Sit/Stand Transfer Assist Level Contact Guard/Hand Hold Chair Transfer Ability Supervision/Stand by Chair Transfer Technique Sit to/from Ambulatory Chair Transfer Assistive Devices Rolling Walker Lower Body Dressing Ability Independent decrease in endurance No Rehab OT IP prob,goals,plan Problems Date of Evaluation: 06/11/22 OT IP Problems Bed Mobility,Transfers,Balance ,Self care,Safety Rehab Potential Rehab Potential Innapropriate for Skilled Therapy Equipment Needs Assistive Devices Rolling / Wheeled Walker Discharge Plan OT Discharge Plan Pt is independent in all ADLs, IADLs, and functional transfers. Therefore, it would be inappropraite to continue skilled OT due to her being at her baseline. Pt is safe to retur
--- NOTE | 2022-06-11 10:01 | HMH.PTEV ---
Physical Therapy Evaluation Rehab PT IP Evaluation Start: 06/11/22 08:58 Freq: .once Status: Active Protocol: Document 06/11/22 09:58 ERIC (Rec: 06/11/22 10:01 ERIC [id number]) Subjective/History History History 86 yowf adm to [facility] with poss GIB. She report sshe lives alone, no steps to enter the home and is generally independent with all mobility using a cane. Subjective Subjective Currently pt enthusiastically reports no c/o. I feel wonderful! Rehab PT IP Eval Objective Appearance Patient Behavior Appropriate Patient Orientation Person,Place,Time Difficulty following instructions none Speech Pattern Clear Ambulation Patient Able to Ambulate Yes Ambulation Observation IP General Gait Pattern Observation Wide Based Gait Ambulation Distance (feet) 75 Ambulation Assistive Device Rolling Walker Ambulation Ability Supervision/Stand by Balance Ability to Arise Able, uses arms to help Sitting Balance Steady, safe Standing Balance Steady, wide stance Dynamic Sitting Balance Ability Good Dynamic Standing Balance Ability Fair Transfers Bed Transfer Ability Independent Chair Transfer Ability Supervision/Stand by Sit to Stand Bed Transfer Ability Supervision/Stand by Sit to Stand Chair Transfer Ability Supervision/Stand by ROM All Extremities PT ROM Status WFL MMT All Extremities PT MMT WFL Rehab PT IP prob,goals,plan Problems Date of Evaluation: 06/11/22 Discharge Plan PT Discharge Plan Pt is currently at baseline for all mobility and appropriate to return home once medically stable. G -code Required No Eval Complexity Eval Charge Codes 77155 - Moderate Complexity PHYSICIAN CERTIFICATION: I certify the specified therapy services for Annika Luis are required, authorized, and reviewed every 30 days.
[2022-06-11 11:14] VITALS: BP 122/58; PULSE 62; RESP 17; TEMP 36.8; O2SAT 99
[2022-06-11 14:20] LABS: Transferrin 233 mg/dL (149-313)
[2022-06-11 15:05] VITALS: BP 125/59; PULSE 71; RESP 17; TEMP 36.6; O2SAT 99
[2022-06-11 15:30] LABS: Hematocrit 26.3 % (37.0-47.0); Hemoglobin 9.1 g/dL (12.2-16.2)
--- NOTE | 2022-06-13 11:11 | CARE MANAGER ---
LATE ENTRY: Spoke with patient for post-discharge phone interview on 06/12/21. No issues noted.
== END 2022-06-11 17:45 | disposition home or self-care (01) | DRG 377 ==
LOC: ER 19:26 → 2ND 22:48
PROVIDERS: Emergency Medicine; Nurse Practitioner Acute Care; Surgery; Admitting Provider Family Medicine; Emergency Provider Emergency Medicine; PCP Student in an Organized Health Care Education/Training Program; Visit Provider Internal Medicine Adolescent Medicine
PROC: 0DJ08ZZ Inspection of Upper Intestinal Tract, Via Natural or Artificial Opening Endoscopic (ICD-10-PCS; CPT 43235; principal; 2022-06-10 11:00)
DX: K29.81 Duodenitis with bleeding (principal); I21.4 Non-ST elevation (NSTEMI) myocardial infarction; D62 Acute posthemorrhagic anemia; I10 Essential (primary) hypertension; E78.5 Hyperlipidemia, unspecified; R01.1 Cardiac murmur, unspecified; R77.8 Other specified abnormalities of plasma proteins; I35.0 Nonrheumatic aortic (valve) stenosis
CPT/HCPCS: 43255; 36415; 71045; 74021; 74176; 80048; 80053; 80061; 81001; 82272; 82607; 82728; 82746; 83540; 83550; 83735; 84443; 84466; 84484; 85014; 85018; 85025; 85610; 86850; 87086; 87088; 87186; 93005; 93306; 97162; 97165; 99285; C9803; G0328; P9016; U0003; U0005

== ENCOUNTER → 2022-07-01 23:57 | Outpatient (CLI) | payer MEDICARE, SELFPAY ==
[2022-07-01 15:54] LABS: Basophils % 0.6 % (0.1-2.0); Eosinophils # 0.3 K/mm3 (0.0-0.4); Eosinophils % 6.2 % (0.1-12.0); Hematocrit 34.2 % (37.0-47.0); Hemoglobin 11.2 g/dL (12.2-16.2); Lymphocytes # 0.9 K/mm3 (0.7-4.5); Lymphocytes % 16.9 % (10-50); Mean Corpuscular HGB Conc 32.8 g/dL (31.8-35.4); Mean Corpuscular Hemoglobin 31.1 pg (27.0-31.2); Mean Corpuscular Volume 94.8 fl (81-99); Mean Platelet Volume 9.5 fl (7.4-10.4); Monocytes # 0.4 K/mm3 (0.1-1.0); Monocytes % 7.8 % (1.7-9.3); Neutrophils # 3.5 K/mm3 (1.8-7.8); Neutrophils % 68.5 % (37.0-80.0); Platelet Count 265 K/mm3 (142-424); Red Blood Count 3.61 M/mm3 (4.20-5.40); Red Cell Distribution Width 14.5 % (11.5-17.5); White Blood Count 5.1 K/mm3 (4.8-10.8)
[2022-07-01 17:42] LABS: Alanine Aminotransferase 14 U/L (12-78); Albumin Level 3.9 g/dl (3.5-5.0); Albumin/Globulin Ratio 1.6 (1.1-1.8); Alkaline Phosphatase 65 U/L (38-126); Anion Gap 8.9 mEq/L (5-15); Aspartate Amino Transferase 31 U/L (14-36); Bilirubin,Total 0.5 mg/dl (0.2-1.3); Blood Urea Nitrogen 25 mg/dl (7-17); Calcium 8.8 mg/dl (8.4-10.2); Carbon Dioxide 27 mmol/L (22.0-30.0); Chloride 108 mmol/L (98-107); Estimated Glomerular Filt Rate 39 ml/min (>60); GFR (African American) 47 ML/MIN (>60); Globulin 2.5 g/dL (1.3-3.2); Glucose 90 mg/dl (74-100); Potassium 3.9 mmoL/L (3.5-5.1); Sodium 140 mmol/L (136-145); Total Protein,Serum 6.4 g/dl (6.3-8.2)
== END ==
PROVIDERS: PCP Physician Assistant; Visit Provider Physician Assistant
DX: D64.9 Anemia, unspecified (principal); M25.561 Pain in right knee; M25.562 Pain in left knee
CPT/HCPCS: 80053; 85025

== ENCOUNTER → 2022-07-07 23:52 | Outpatient (CLI) | payer MEDICARE, SELFPAY | PROVIDERS: PCP Physician Assistant; Visit Provider Physician Assistant | DX: N39.0 Urinary tract infection, site not specified (principal) | CPT/HCPCS: 87086 ==

== ENCOUNTER → 2022-07-23 12:40 | Outpatient (CLI) | payer MEDICARE, SELFPAY | PROVIDERS: PCP Physician Assistant; Visit Provider Nurse Practitioner | DX: D64.9 Anemia, unspecified (principal); E78.5 Hyperlipidemia, unspecified; I10 Essential (primary) hypertension; I25.10 Atherosclerotic heart disease of native coronary artery without angina pectoris; I35.0 Nonrheumatic aortic (valve) stenosis; I63.9 Cerebral infarction, unspecified; R94.31 Abnormal electrocardiogram [ECG] [EKG]; Z01.810 Encounter for preprocedural cardiovascular examination; N39.0 Urinary tract infection, site not specified | CPT/HCPCS: 78452; 87086; 93017; A9502; J2785 ==

== ENCOUNTER → 2022-07-23 23:00 | Outpatient (CLI) | payer MEDICARE, SELFPAY | PROVIDERS: PCP Physician Assistant; Visit Provider Physician Assistant | DX: Z01.818 Encounter for other preprocedural examination (principal) ==

== ENCOUNTER 2022-08-08 11:44 | Day surgery (SDC) | payer MEDICARE, SELFPAY ==
[2022-08-07 12:40] VITALS: BMI 20.6
[2022-08-08 12:07] VITALS: BP 185/89; PULSE 74; RESP 18; TEMP 36.6; O2SAT 98
--- NOTE | 2022-08-08 12:32 | EXP.ANES.CKL ---
[facility] Disclaimer: The information contained in this section may have been updated after the patient was seen, as this information can be updated by other users. Medical History Bleeding ulcer Breast cancer Hyperlipidemia Hypertension TIA (transient ischemic attack) Surgical History H/O lumpectomy S/P lumpectomy, right breast Family History Other Breast cancer Diabetes Heart attack Hypertension Stroke Social History Smoking Status: Never smoker alcohol intake: never substance use type: denies use current occupational status: retired Travel in the last 8 weeks: None housing: house current occupational exposures/hazards: No caffeine: Yes [facility] Anesthesia Checklist Patient Identification Patient Identification: Arm Band Structural Data Admitted From: Home Planned Operative Procedure/s: EGD Consent for Planned Operative Procedure(s) Verified: Yes Verified Documents: Surgical Consent and History and Physical NPO Status Verified Time NPO: 00:00 Additional verifications Anesthesia Reactions: No Hx Blood Transfusions: No Blood Transfusion Reaction: No Airway Assessment C-Spine Mobility Assessed: Yes TMJ Mobility Assessed: Yes Dentition: Poor Dentition Neurological Assessment Level of Consciousness: Awake and Alert Anesthesia Plan Anesthesia Risk discussed: Yes Anesthesia Plan: Verified ASA Class: III Anesthesia Type: MAC
[2022-08-08 12:39] VITALS: O2SAT 97
[2022-08-08 12:47] VITALS: BP 142/72; PULSE 59; RESP 14; TEMP 36.6; O2SAT 100
--- NOTE | 2022-08-08 12:48 | HMH.SCOPE ---
Procedure: Date: 08/08/22 Patient Date of :: 1935 Procedure Performed:: Esophagogastroduodenoscopy with biopsies Indications:: Patient is a 87-year-old. She had been admitted to [facility] on 06/09/2022 with symptoms of anemia and upper GI bleeding. She underwent upper endoscopy which revealed a punctate area of slow active hemorrhagic oozing in the distal duodenum which required submucosal injection of epinephrine and deployment of Hemoclip. As well as an unusual area and felt to be potentially AVM versus Dieulafoy lesion. She has not had any symptoms of ongoing blood loss or anemia. Plan was for follow-up upper endoscopy. Performing Provider:: Braulio Dc MD Referring Provider:: Aleah Cook Sedation:: MAC sedation Procedure:: Patient was taken to endoscopy procedure room. She was positioned in lateral decubitus position. Adequate intravenous sedation was achieved. Olympus endoscope was inserted via the oropharynx. There were findings of some mild esophageal dysmotility. Esophagus was cannulated. Endoscope was advanced. Gastroesophageal junction was encountered at approximately 34 cm from the incisors. Stomach was cannulated and insufflated. Retroflexion revealed potentially small sliding hiatal hernia. There was some minor diffuse gastropathy. Pylorus was traversed and endoscope was advanced a generous distance down the duodenum to where previous site of bleeding was noted. There was noted to be no evidence of any pathology at the site. Endoscope was withdrawn into the stomach. Gastric mucosal biopsies obtained to assess for H. pylori. A couple of biopsies were obtained at the gastroesophageal junction to evaluate for Hester's esophagus. Endoscope was withdrawn. Findings:: No evidence of any residual pathology at the site of previous bleeding. Mild esophageal dysmotility Gastroesophageal junction at approximately 34 cm Recommendations:: Treat H. pylori if positive. Otherwise manage expectantly. Complications:: None immediate Estimated blood obtained (mL): 1
[2022-08-08 12:57] VITALS: BP 125/67; PULSE 60; RESP 16; O2SAT 96
[2022-08-08 13:07] VITALS: BP 129/65; PULSE 56; RESP 17; O2SAT 98
[2022-08-08 13:17] VITALS: BP 133/69; PULSE 64; RESP 18; TEMP 36.6; O2SAT 99
== END 2022-08-08 13:18 | disposition home or self-care (01) ==
PROVIDERS: PCP Physician Assistant; Visit Provider Surgery
PROC: 0DJ08ZZ Inspection of Upper Intestinal Tract, Via Natural or Artificial Opening Endoscopic (ICD-10-PCS; CPT 43235; principal; 2022-08-08 13:00)
DX: D64.9 Anemia, unspecified (principal); K29.70 Gastritis, unspecified, without bleeding; K21.9 Gastro-esophageal reflux disease without esophagitis; Z79.899 Other long term (current) drug therapy
CPT/HCPCS: 43239; 88305

== ENCOUNTER 2022-10-15 11:08 | Emergency (ER) | payer MEDICARE, SELFPAY ==
[2022-10-15 11:09] VITALS: BP 178/86; PULSE 70; RESP 18; TEMP 36.9; O2SAT 99; BMI 19.2
--- NOTE | 2022-10-15 11:25 | ECG_ITS ---
APPROVED REPORT Exam: Resting ECG HR:62 bpm ECG Measurements Heart Rate 62 AXES NJ 145 P 38 QRSd 86 QRS 60 QT 440 T 60 QTc 445 Conclusion SINUS RHYTHM WITH SINUS ARRHYTHMIA NORMAL ECG UNCONFIRMED REPORT Electronically signed by : Frandy Schulz MD 10/15/2022 17:32:58
[2022-10-15 11:28] VITALS: BP 169/77; PULSE 60; O2SAT 100
--- NOTE | 2022-10-15 11:29 | HMH.EDGENADL ---
Discharge Plan Disposition Patient Disposition: Home, Self-Care Prescriptions Prescriptions: New clopidogrel [Plavix] 75 mg tablet 75 mg PO DAILY 30 Days Qty: 30 0RF No Action diphenhydramine HCl [Benadryl] 25 mg capsule 25 mg PO BID PRN (Reason: allergies) calcium carbonate-vitamin D3 1 EACH tablet 1 tab PO DAILY alendronate 70 mg tablet 70 mg PO WEEKLY amlodipine 5 mg tablet 5 mg PO DAILY famotidine [Zantac-360 (famotidine)] 20 mg tablet 20 mg PO DAILY lansoprazole [Prevacid] 30 mg capsule,delayed release(DR/EC) 30 mg PO DAILY pravastatin 40 mg tablet 40 mg PO DAILY lisinopril 20 mg tablet 20 mg PO DAILY Referrals Follow up/Referrals: Aleah Cook PA [Primary Care Provider] - See instructions Activity Restrictions/Add. Instructions Additional Instructions/Restrictions: You have 90% carotid stenosis on the left internal carotid artery and had a transient ischemic attack. There is no emergent indication for treatment but you do need your carotid artery to be urgently evaluated for probable surgical or stenting intervention. Please do not take aspirin but take your Plavix which is prescribed to you today and follow-up with Dr. Hicks tomorrow at 11 AM in his clinic. Return with any worsening neurologic symptoms. Clinical Impressions Clinical Impression: Carotid artery stenosis, TIA involving carotid artery Discharge ED Provider: Ada Mathis General Adult HPI General Chief complaint: Weakness Stated complaint: prior difficulty speaking Time Seen by Provider: 10/15/22 11:29 History of Present Illness HPI narrative: Patient is an 87-year-old female presenting today with expressive aphasia that lasted 45 minutes just prior to arrival has since completely resolved. She states that she was completely aware that she could not write she could not talk she tried to call her friend and was crying on the phone was aware of the whole situation this lasted 45 minutes she states she had to strokes in the past with motor weakness but she felt like she was having a stroke. She is currently without any symptoms denies any headache neck pain chest abdomen pelvis pain numbness weakness tingling arms or legs any difficulty with expression or cognition at the moment. She states she is followed by a nurse in [place] I looked up her chart and she has been seen for aortic stenosis. She recently was admitted with a GI bleed and was discontinued on anticoagulants and antiplatelet she states. No history of atrial fibrillation that she is aware of. Related Data Home Medications Medication Instructions Recorded Confirmed calcium carbonate 600 mg-vitamin 1 tab PO DAILY Supplement 01/04/21 08/08/22 D3 10 mcg (400 unit) tablet lisinopril 20 mg tablet 20 mg PO DAILY Hypertension 06/09/22 08/08/22 pravastatin 40 mg tablet 40 mg PO DAILY Cholesterol 06/09/22 08/08/22 diphenhydramine HCl 25 mg capsule 25 mg PO BID PRN allergies 07/01/22 08/08/22 (Benadryl) alendronate 70 mg tablet 70 mg PO WEEKLY Osteoporosis 08/07/22 08/08/22 amlodipine 5 mg tablet 5 mg PO DAILY BP 08/07/22 08/08/22 famotidine 20 mg tablet 20 mg PO DAILY antacid 08/07/22 08/08/22 (Zantac-360 (famotidine)) lansoprazole 30 mg capsule,delayed 30 mg PO DAILY Antacid 08/07/22 08/08/22 release (Prevacid) Previous Rx's Medication Instructions Recorded clopidogrel 75 mg tablet (Plavix) 75 mg PO DAILY 30 days #30 tabs 10/15/22 Allergies Allergy/AdvReac Type Severity Reaction Status Date / Time Penicillins Allergy Severe S-SWELLS-OR Verified 07/08/22 10:53 AL/THROAT pantoprazole [From Protonix] AdvReac Severe Verified 07/08/22 10:53 [facility] Disclaimer: The information contained in this section may have been updated after the patient was seen, as this information can be updated by other users. Medical History Bleeding ulcer Br
[2022-10-15 11:30] VITALS: BP 182/79; PULSE 58; O2SAT 100
--- NOTE | 2022-10-15 11:30 | PC.NURSE ---
PT SUGAR IS 88
[2022-10-15 11:40] VITALS: BMI 18.6
--- NOTE | 2022-10-15 11:41 | CT_ITS ---
FINAL REPORT TECHNIQUE: thin section axial CT with and without IV contrast supplemented with multiplanar 3-D reconstruction of the head. This study was performed with techniques to keep radiation doses as low as reasonably achievable, (ALARA)individualized dose reduction techniques using automated exposure control or adjustment of mA and/or kV according to the patient's size were employed. CLINICAL HISTORY: stroke symptoms FINDINGS: HEAD CT: There is advanced cortical atrophy. There is patchy decreased attenuation in the deep white matter. There is an old lacunar infarct in the right basal ganglia. The ventricles are normal in size. There is no evidence of hemorrhage. No masses are identified. No extra-axial fluid is seen. The sinuses are normal. CTA: The right carotid demonstrates moderate vascular calcification of the proximal internal carotid artery. There is no significant stenosis. The left carotid demonstrates extensive vascular calcification at the carotid bifurcation. On the axial images, the true degree of stenosis is difficult to assess due to the calcification. There appears to be greater than 90%. There is marked tortuosity of the proximal left internal carotid artery. The vertebral arteries are patent. No large vessel occlusion is identified. IMPRESSION: Greater than 90% stenoses at associated with dense calcification of the proximal left internal carotid artery. No intracranial large vessel occlusion. Atrophy and moderate chronic changes Reviewed, Interpreted and Dictated by Gregory Pierre MD Transcribed by Nelia Christianson Authenticated and [facility]
--- NOTE | 2022-10-15 11:41 | CT_ITS ---
FINAL REPORT TECHNIQUE: NASCET technique utilized for stenosis evaluation. CLINICAL HISTORY: stroke symptoms COMPARISON: none FINDINGS: The right carotid demonstrates moderate vascular calcification of the proximal internal carotid artery. There is no significant stenosis. The left carotid demonstrates extensive vascular calcification at the carotid bifurcation. On the axial images, the true degree of stenosis is difficult to assess due to the calcification. There appears to be greater than 90%. There is marked tortuosity of the proximal left internal carotid artery. The vertebral arteries are patent. IMPRESSION: Greater than 90% stenoses at associated with dense calcification of the proximal left internal carotid artery. Reviewed, Interpreted and Dictated by Gregory Pierre MD Transcribed by Julianne Garcia Authenticated and [facility]
[2022-10-15 11:50] LABS: Chloride 104 mmol/L (98-107); Sodium 140 mmol/L (136-145)
[2022-10-15 11:51] LABS: Potassium 3.7 mmoL/L (3.5-5.1)
[2022-10-15 11:53] LABS: Blood Urea Nitrogen 21 mg/dl (7-17); Creatinine Clearance Estimated 24 mL/min (50-200); Estimated Glomerular Filt Rate 42 ml/min (>60); GFR (African American) 51 ML/MIN (>60)
[2022-10-15 11:54] LABS: Anion Gap 12.7 mEq/L (5-15); Calcium 9.4 mg/dl (8.4-10.2); Carbon Dioxide 27 mmol/L (22.0-30.0); Glucose 82 mg/dl (74-100)
[2022-10-15 12:00] VITALS: BP 162/82; PULSE 58; O2SAT 98
[2022-10-15 12:07] LABS: Troponin I < 0.01 ng/ml (0.00-0.034)
[2022-10-15 12:11] LABS: Basophils % 0.4 % (0.1-2.0); Eosinophils # 0.2 K/mm3 (0.0-0.4); Eosinophils % 5.2 % (0.1-12.0); Hematocrit 35.7 % (37.0-47.0); Hemoglobin 11.7 g/dL (12.2-16.2); Lymphocytes % 20.8 % (10-50); Mean Corpuscular HGB Conc 32.9 g/dL (31.8-35.4); Mean Corpuscular Hemoglobin 30.3 pg (27.0-31.2); Mean Corpuscular Volume 92.1 fl (81-99); Mean Platelet Volume 8.4 fl (7.4-10.4); Monocytes # 0.4 K/mm3 (0.1-1.0); Monocytes % 8.8 % (1.7-9.3); Neutrophils # 2.9 K/mm3 (1.8-7.8); Neutrophils % 64.8 % (37.0-80.0); Platelet Count 183 K/mm3 (142-424); Red Blood Count 3.88 M/mm3 (4.20-5.40); Red Cell Distribution Width 14.2 % (11.5-17.5); White Blood Count 4.5 K/mm3 (4.8-10.8)
[2022-10-15 12:18] LABS: Activated Partial Thrombo Time 26.2 seconds (22.8-30.6); INR 0.93 (0.9-1.1); Prothrombin Time 10.1 seconds (10.1-12.5)
--- NOTE | 2022-10-15 13:15 | PC.NURSE ---
aura pearl at
[2022-10-15 14:19] VITALS: BP 188/88; PULSE 64; RESP 16; TEMP 36.8; O2SAT 98
[2023-01-12 09:58] LABS: POC Glucose,Bedside 165 (70-110)
== END 2022-10-15 14:22 | disposition home or self-care (01) ==
PROVIDERS: Emergency Provider Student in an Organized Health Care Education/Training Program; PCP Physician Assistant
DX: G45.9 Transient cerebral ischemic attack, unspecified (principal); I65.22 Occlusion and stenosis of left carotid artery; I10 Essential (primary) hypertension; E87.5 Hyperkalemia; Z86.73 Personal history of transient ischemic attack (TIA), and cerebral infarction without residual deficits
CPT/HCPCS: 70496; 70498; 80048; 82962; 84484; 85025; 85610; 85730; 93005; 99285; Q9967

== ENCOUNTER → 2022-10-30 13:24 | Outpatient (POV) | payer MEDICARE, SELFPAY ==
[2022-10-30 13:27] VITALS: BP 117/60; PULSE 117; RESP 18; TEMP 37; O2SAT 100; BMI 21.4
--- NOTE | 2022-10-30 13:44 | EXP.PAIN.OV ---
HPI Data of Consult Patient: new to practice Consult date: 10/30/22 Requesting Physician: Yecenia See APRN Primary Care Provider: MISAEL Guzman Consult Narrative Reason for consult: Low back pain, left hip pain, bilateral knee pain History of present illness: Ms. Luis is a 87 year old female who presents today as a new patient. She is a referral from Aleah Cook's office. She rates her pain a 10 out of 10. Patient states her pain is all in her low back with radiating symptoms into her left hip. Patient does describe this as a constant achy sensation that is worse with increased activity. Patient states that approximately 6 years ago she fell in her driveway onto her left hip and since then her pain is progressively worsen. She states she continues to be very active and even takes her own trash down however she does have certain days that are worse than others. Patient also states that she has some bilateral knee pain. Patient has tried [id number] medications such as Tylenol and ibuprofen along with heat and ice and topicals with no additional relief. Patient denies any previous back surgery, physical therapy or injective therapy history. Patient states that she did recently have a mini stroke back in September and that she spent 10 days in the hospital. Patient did just have a procedure with Dr. Hicks on the of this month to go in and clean out some of her arteries on the left side of her neck. Patient is on Plavix daily. Patient is not currently on any scheduled medications. Her Judson is [phone]. Its been reviewed and appropriate. CC: Yecenia See APRN [facility] Disclaimer: The information contained in this section may have been updated after the patient was seen, as this information can be updated by other users. Medical History (Updated 10/30/22 @ 14:15 by Yecenia See APRN) Bleeding ulcer Breast cancer Expressive aphasia Hyperlipidemia Hypertension Right hemiparesis TIA (transient ischemic attack) Surgical History H/O lumpectomy S/P lumpectomy, right breast Family History Other Breast cancer Diabetes Heart attack Hypertension Stroke Social History (Updated 10/30/22 @ 13:52 by Carolin Yoon RN) Smoking Status: Never smoker alcohol intake: never substance use type: denies use current occupational status: retired Travel in the last 8 weeks: None housing: house current occupational exposures/hazards: No caffeine: Yes Review of Systems Review of Systems Review of systems:: pertinent systems reviewed and negative unless documented below Review of systems (narrative): Review of Systems: General: No recent weight changes, no fever, no sleep disturbances Respiratory: No cough, no shortness of air, no recurring pulmonary infections Cardiovascular/peripheral vascular: No chest pain, no palpitations, no edema, no shortness of breath Gastrointestinal: No new onset incontinence, normal bowel movements reported Genitourinary: No new onset incontinence Musculoskeletal: Low back pain, left hip pain, bilateral knee pain Psychiatric: [Normal mood/affect] Neurological: [Denies weakness in extremities], [denies balance issues] Meds Home Medications and Allergies Home Medications Medication Instructions Recorded Confirmed Type calcium carbonate 600 mg-vitamin 1 tab PO DAILY Supplement 01/04/21 10/30/22 History D3 10 mcg (400 unit) tablet lisinopril 20 mg tablet 20 mg PO DAILY Hypertension 06/09/22 10/30/22 History pravastatin 40 mg tablet 40 mg PO DAILY Cholesterol 06/09/22 10/30/22 History diphenhydramine HCl 25 mg capsule 25 mg PO BID PRN allergies 07/01/22 10/30/22 History (Benadryl) alendronate 70 mg tablet 70 mg PO WEEKLY Osteoporosis 08/07/22 10/30/22 History amlodipine 5 mg tablet 5 mg PO DAILY BP 08/07/22 10/30/22 History famotidine 20 mg tab
== END ==
PROVIDERS: PCP Physician Assistant; Visit Provider Nurse Practitioner Family
DX: M51.16 Intervertebral disc disorders with radiculopathy, lumbar region (principal); M48.061 Spinal stenosis, lumbar region without neurogenic claudication; R29.818 Other symptoms and signs involving the nervous system; M24.28 Disorder of ligament, vertebrae; M54.50 Low back pain, unspecified; M25.552 Pain in left hip; M47.26 Other spondylosis with radiculopathy, lumbar region; M25.561 Pain in right knee; M25.562 Pain in left knee
CPT/HCPCS: 99202; G0463

== ENCOUNTER 2022-11-04 13:01 | Day surgery (SDC) | payer MEDICARE, SELFPAY ==
[2022-11-04 13:16] VITALS: BP 134/64; PULSE 67; RESP 18; TEMP 36.5; O2SAT 100; BMI 21.0
[2022-11-04 13:34] VITALS: BP 170/65; PULSE 67; RESP 18; O2SAT 97
[2022-11-04 13:35] VITALS: BP 170/65; PULSE 67; RESP 18; O2SAT 97
--- NOTE | 2022-11-04 13:39 | P.PCN_ITS ---
Procedure Date: 11/04/22 Time: 13:30 Anesthesiologist:: Zan Linares CRNA Complications:: None Pre-procedure Diagnosis:: Osteoarthritis left hip. Chronic left hip pain. Post-procedure Diagnosis:: Same. Indications for Procedure:: Very pleasant 87-year-old female comes our clinic today for a left intra- articular hip injection. Patient describes left hip pain as constant, dull, sharp, stabbing. She rates her pain 10/10. Procedure Details:: Details of the procedure were explained to the patient. The patient was taken to procedure room placed in the supine position. The area over the left hip was cleaned using chlorhexidine as a cleansing solution. Using fluoroscopy guidance a 3 and half inch 22-gauge spinal needle was used to access the left hip joint without difficulty. After negative aspiration 3 cc of 1% lidocaine +3 cc of 0.25% Marcaine and 40 mg of Depo-Medrol was injected. Needle was withdrawn. Band-Aid applied. Patient tolerated procedure without difficulty. There are no complications. Plan and Disposition:: Patient was discharged without incident.
[2022-11-04 13:40] VITALS: BP 145/58; PULSE 64; RESP 16; O2SAT 100
== END 2022-11-04 13:40 | disposition home or self-care (01) ==
PROVIDERS: PCP Physician Assistant; Visit Provider Nurse Anesthetist, Certified Registered
DX: M16.12 Unilateral primary osteoarthritis, left hip (principal); M25.552 Pain in left hip; G89.29 Other chronic pain
CPT/HCPCS: 20610; 77002; J1040

== ENCOUNTER → 2022-11-19 14:35 | Outpatient (POV) | payer MEDICARE, SELFPAY ==
--- NOTE | 2022-11-19 14:45 | EXP.PAIN.SOA ---
[facility] Pain Management SOAP Note Subjective:: Patient is a pleasant 87-year-old female who presents today for follow-up of left hip intra-articular injection on 11/04/2022. 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 Today she rates her pain a 10 out of 10. She does state that she had 100% improvement in her left hip following this injection and it feels like it is still continuing to help. She does state her pain today is related to her low back and describes it as a aching, throbbing sensation that is constant and worse with increased activity. She does state that she notices the pain in her low back with radiating symptoms. She states this has been going on for years and progressively worsened over time. She does state that the pain interferes with her ability perform activities of daily living such as cooking and cleaning. She is very active and takes out her own trash and does things around her house on her own. Patient does have a history of stroke back in September and is currently on Plavix that is written by Dr. Hicks's office. She is not on any scheduled medications. She does use a wheelchair to help with additional ambulation. her Judson is [phone]. Its been reviewed and appropriate. Review of Systems: General: No recent weight changes, no fever, no sleep disturbances Respiratory: No cough, no shortness of air, no recurring pulmonary infections Cardiovascular/peripheral vascular: No chest pain, no palpitations, no edema, no shortness of breath Gastrointestinal: No new onset incontinence, normal bowel movements reported Genitourinary: No new onset incontinence Musculoskeletal: Low back pain, bilateral leg pain Psychiatric: [Normal mood/affect] Neurological: [Denies weakness in extremities], [denies balance issues] Objective:: Physical Exam: General: Alert and oriented x3, no acute distress, pleasant and cooperative Lungs: Respirations even and unlabored, symmetrical chest expansion Eyes: PERRL Musculoskeletal: Flexion and extension of lumbar [spine] somewhat guarded secondary to pain, [antalgic gait noted] Neurological: Speech clear, no gross sensory deficit Assessment:: degenerative disc disease of lumbar spine with lumbar radiculopathy symptoms, lumbar facet arthropathy, 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 I have discussed with the patient that she may benefit from a lumbar epidural steroid injection. Risk and benefits were discussed with the patient and she would like to proceed forward with this plan of care. Patient's previous MRI did show multilevel degenerative disc disease with varying degrees of foraminal and lateral recess narrowing, severe at levels L3-L4 and L4-L5. Patient is currently on Plavix and we will contact Dr. Hicks's office and confirm she can come off this medication for 7 days prior to this injection. Patient will be scheduled for an LESI L3-L4. Patient has been instructed to contact the clinic with any concerns before the next appointment. Dr. Serrano has reviewed this note and agrees with this plan of care. This note was dictated using voice recognition software and make contain errors or omissions. [facility] Disclaimer: The information contained in this section may have been updated after the patient was seen, as this information can be updated by other users. Medical History (Updated 11/05/22 @ 15:24 by Karyn Apple MA) Bleeding ulcer Breast cancer Expressive aphasia Hyperlipidemia Hypertension Right hemiparesis TIA (transient ischemic attack) TIA (transient ischemic attack) Surgical History (Updated
[2022-11-19 15:13] VITALS: BP 123/58; PULSE 53; RESP 18; O2SAT 98; BMI 21.4
== END ==
PROVIDERS: PCP Physician Assistant; Visit Provider Nurse Practitioner Family
DX: M51.16 Intervertebral disc disorders with radiculopathy, lumbar region (principal); M47.26 Other spondylosis with radiculopathy, lumbar region; M48.062 Spinal stenosis, lumbar region with neurogenic claudication; M25.552 Pain in left hip; M25.561 Pain in right knee; M25.562 Pain in left knee
CPT/HCPCS: 99212; G0463

== ENCOUNTER 2022-12-09 09:56 | Day surgery (SDC) | payer MEDICARE, SELFPAY ==
[2022-12-09 10:10] VITALS: BP 123/61; PULSE 70; RESP 16; TEMP 36.3; O2SAT 91; BMI 19.2
[2022-12-09 10:39] VITALS: RESP 20
[2022-12-09 10:48] VITALS: BP 144/70; PULSE 68; RESP 18; O2SAT 98
--- NOTE | 2022-12-09 10:55 | P.PCN_ITS ---
Procedure Date: 12/09/22 Time: 10:50 Anesthesiologist:: Zan Linares CRNA Complications:: None Pre-procedure Diagnosis:: Degenerative disc lumbar spine multilevels. Lumbar radiculopathy. Lumbar spondylosis. Multilevel lumbar facet arthropathy. Post-procedure Diagnosis:: Same. Indications for Procedure:: Patient is a very pleasant 87-year-old female that comes our clinic today for lumbar epidural steroid injection to L3-4 level. Patient complains of low back pain with right hip and leg radicular symptoms. Patient status post left intra- articular hip injection with significant improvement terms of her left hip pain. She rates her pain today 7/10. Her main complaint is not being able to stand straight. She walks in flexion secondary to pain in the lumbar spine. Procedure Details:: Procedure: Lumbar epidural steroid injection under fluoroscopy Informed consent was obtained and the risks and benefits of the procedure were explained to the patient. The patient was taken to the procedure room and noninvasive monitors placed, including noninvasive blood pressure cuff and pulse oximeter. The back was viewed using C-arm Fluoroscopy and prepped using Chloraprep as a cleansing solution and the L4-L5 interspace was palpated. Skin and subcutaneous tissues were anesthetized using lidocaine 1.5% and a 25-gauge needle. After this, an 18-gauge Touhy epidural needle was placed into the L4-L5 interspace and advanced using fluoroscopic guidance and loss of resistance to air until the epidural space was encountered. After confirmation of needle placement in the epidural space, with dye, a solution containing normal saline, 3 mL and Depo-Medrol 80 mg were incrementally injected into the lumbar epidural space. The patient tolerated the procedure well with no complications. L3-4 was not accessible for epidural injection. Plan and Disposition:: Patient was discharged without incident.
== END 2022-12-09 10:48 | disposition home or self-care (01) ==
LOC: SC.PAINP 09:57
PROVIDERS: PCP Physician Assistant; Visit Provider Nurse Anesthetist, Certified Registered
DX: M51.16 Intervertebral disc disorders with radiculopathy, lumbar region (principal); M47.26 Other spondylosis with radiculopathy, lumbar region
CPT/HCPCS: 62323; J1040

== ENCOUNTER → 2022-12-24 11:23 | Outpatient (POV) | payer MEDICARE, SELFPAY ==
[2022-12-24 11:54] VITALS: BP 119/59; PULSE 67; RESP 18; O2SAT 98; BMI 21.4
--- NOTE | 2022-12-24 13:00 | EXP.PAIN.SOA ---
[facility] Pain Management SOAP Note Subjective:: Patient is a pleasant 87-year-old female who presents today for follow-up of lumbar epidural steroid injection L4-L5 on 12/09/2022. We are currently treating the patient for degenerative disc disease of lumbar spine multilevels with lumbar radiculopathy symptoms, lumbar spondylosis, multilevel lumbar facet arthropathy. Today she rates her pain a 7 out of 10. Patient denies any new trauma or injury. She states that she only had a few hours of relief following this injection however during that time it was approximately 90 to 100% improvement. Patient does state that she continues to experience significant pain in her low back and legs and describes it as an aching, throbbing sensation that is worse with increased activity. She does state that the pain makes it difficult to perform activities of daily living such as cooking and cleaning. Patient does state that she currently has a upcoming dye study for her aorta artery for possible blockage and that she is unsure whether or not she will have to have a procedure following this. Patient does have a history of a stroke in 2008. Patient does also complain of weakness into her legs and does use a walker at home for help with ambulation and presents today in wheelchair. Her Judson is [id number]. It has been reviewed and appropriate. Review of Systems: General: No recent weight changes, no fever, no sleep disturbances Respiratory: No cough, no shortness of air, no recurring pulmonary infections Cardiovascular/peripheral vascular: No chest pain, no palpitations, no edema, no shortness of breath Gastrointestinal: No new onset incontinence, normal bowel movements reported Genitourinary: No new onset incontinence Musculoskeletal: Low back pain, bilateral leg pain Psychiatric: [Normal mood/affect] Neurological: [Denies weakness in extremities], [denies balance issues] Objective:: Physical Exam: General: Alert and oriented x3, no acute distress, pleasant and cooperative Lungs: Respirations even and unlabored, symmetrical chest expansion Eyes: PERRL Musculoskeletal: Flexion and extension of lumbar [spine] somewhat guarded secondary to pain, [antalgic gait noted] Neurological: Speech clear, no gross sensory deficit Assessment:: Degenerative disc disease of lumbar spine multilevels with lumbar radiculopathy symptoms, lumbar spondylosis, multilevel lumbar facet arthropathy Plan:: Patient continues to experience significant pain in her low back and legs with limited range of motion. Patient did have scarring that made L3-4 nonaccessible for epidural injection. I have discussed with patient that she may benefit from a repeat lumbar epidural steroid injection. Risk and benefits were discussed with patient and she would like to proceed forward with this plan of care. Patient was previously on Plavix however she states this has been discontinued and she is only on a baby aspirin. I have also discussed with the patient that in the future she may be a beneficial candidate for a pain pump trial. Educational handouts were given at today's visit and we will discuss this at a later visit. I will prescribe the patient orphenadrine 100 mg extended release twice daily and provide a 2-week supply of this medication. Patient will be scheduled for an LESI L4-L5. Patient has been instructed to contact the clinic with any concerns before the next appointment. Dr. Serrano has reviewed this note and agrees with this plan of care. This note was dictated using voice recognition software and make contain errors or omissions. [facility] Disclaimer: The information contained in this section may have been updated after the patient was seen, as this information can be updated by other users. Medical History Bleeding ulcer Breast cancer Expressive aphasia Hyperlipidemia Hypertension Right hemiparesis TIA (transient ischemic attack) TIA (transient i
== END | disposition home or self-care (01) ==
PROVIDERS: PCP Physician Assistant; Visit Provider Nurse Practitioner Family
DX: M51.16 Intervertebral disc disorders with radiculopathy, lumbar region (principal); M47.26 Other spondylosis with radiculopathy, lumbar region
CPT/HCPCS: 99212; G0463

== ENCOUNTER 2023-01-06 11:15 | Day surgery (SDC) | payer MEDICARE, SELFPAY ==
[2023-01-06 11:42] VITALS: BP 107/54; PULSE 67; RESP 18; TEMP 36.2; O2SAT 98; BMI 20.1
--- NOTE | 2023-01-06 12:01 | EXP.PAIN.PRO ---
Procedure Date: 01/06/23 Time: 12:01 Anesthesiologist:: Zan Linares CRNA Complications:: None Pre-procedure Diagnosis:: Generative disc lumbar spine multilevels. Lumbar radiculopathy. Multilevel lumbar facet arthropathy. Lumbar spondylosis. Post-procedure Diagnosis:: Same. Indications for Procedure:: Patient is a pleasant 87-year-old female comes our clinic today for lumbar epidural steroid injection at the L4-5 level. Patient has had this in the past with some moderate to significant improvement terms of her overall low back pain as well as bilateral hip and leg radicular symptoms. She rates her pain 7/10. Procedure Details:: Procedure: Lumbar epidural steroid injection under fluoroscopy Informed consent was obtained and the risks and benefits of the procedure were explained to the patient. The patient was taken to the procedure room and noninvasive monitors placed, including noninvasive blood pressure cuff and pulse oximeter. The back was viewed using C-arm Fluoroscopy and prepped using Chloraprep as a cleansing solution and the L4-L5 interspace was palpated. Skin and subcutaneous tissues were anesthetized using lidocaine 1.5% and a 25-gauge needle. After this, an 18-gauge Touhy epidural needle was placed into the L4-L5 interspace and advanced using fluoroscopic guidance and loss of resistance to air until the epidural space was encountered. After confirmation of needle placement in the epidural space, with dye, a solution containing normal saline, 3 mL and Depo-Medrol 80 mg were incrementally injected into the lumbar epidural space. The patient tolerated the procedure well with no complications. The patient was observed in the Pain Clinic and then discharged home neurologically intact. Plan and Disposition:: Patient was discharged out incident.
[2023-01-06 12:08] VITALS: BP 137/70; PULSE 64; RESP 18; O2SAT 98
[2023-01-06 12:09] VITALS: BP 170/57; PULSE 71; RESP 18; O2SAT 98
[2023-01-06 12:12] VITALS: BP 170/57; PULSE 71; RESP 18; O2SAT 98
== END 2023-01-06 12:08 | disposition home or self-care (01) ==
PROVIDERS: PCP Physician Assistant; Visit Provider Nurse Anesthetist, Certified Registered
DX: M51.16 Intervertebral disc disorders with radiculopathy, lumbar region (principal); M47.26 Other spondylosis with radiculopathy, lumbar region
CPT/HCPCS: 62323; J1040

== ENCOUNTER → 2023-01-28 13:12 | Outpatient (POV) | payer MEDICARE, SELFPAY ==
--- NOTE | 2023-01-28 14:01 | EXP.PAIN.SOA ---
[facility] Pain Management SOAP Note Subjective:: Patient is a pleasant 87-year-old female who presents today for follow-up of lumbar epidural steroid injection L4-L5 on 01/06/2023. We are currently treating the patient for degenerative disc disease of lumbar spine with lumbar radiculopathy symptoms, lumbar spondylosis, multilevel lumbar facet arthropathy. Today she rates her pain a 4 out of 10. Patient states that she has had at least 60% following this injection and feels like it is still currently providing additional relief. Patient does state that on January 15 she did undergo a procedure at and have a heart valve replacement. She states that everything went accordingly with this procedure and she was released the next day. Patient does state that she has a follow-up on the of this month. She does have a history of stroke and has weakness into her legs. Patient does present today in wheelchair but uses a walker at home. Patient does also state that she previously had a fall when taking out the garbage but denies any injury. Her Judson is [phone]. Its been reviewed and appropriate Review of Systems: General: No recent weight changes, no fever, no sleep disturbances Respiratory: No cough, no shortness of air, no recurring pulmonary infections Cardiovascular/peripheral vascular: No chest pain, no palpitations, no edema, no shortness of breath Gastrointestinal: No new onset incontinence, normal bowel movements reported Genitourinary: No new onset incontinence Musculoskeletal: Low back pain Psychiatric: [Normal mood/affect] Neurological: [Denies weakness in extremities], [denies balance issues] Objective:: Physical Exam: General: Alert and oriented x3, no acute distress, pleasant and cooperative Lungs: Respirations even and unlabored, symmetrical chest expansion Eyes: PERRL Musculoskeletal: Flexion and extension of lumbar [spine] somewhat guarded secondary to pain, [antalgic gait noted] Neurological: Speech clear, no gross sensory deficit Assessment:: Degenerative disc disease of lumbar spine with lumbar radiculopathy symptoms, lumbar spondylosis, multilevel lumbar facet arthropathy Plan:: Patient has had significant improvement following her lumbar epidural steroid injection and does not require any additional injective therapy at this time. Patient will return to clinic in 1 month for reevaluation of symptoms and plan of care. Patient has been instructed to contact the clinic with any concerns before the next appointment. Dr. Serrano has reviewed this note and agrees with this plan of care. This note was dictated using voice recognition software and make contain errors or omissions. [facility] Disclaimer: The information contained in this section may have been updated after the patient was seen, as this information can be updated by other users. Medical History Bleeding ulcer Breast cancer Expressive aphasia Hyperlipidemia Hypertension Right hemiparesis TIA (transient ischemic attack) TIA (transient ischemic attack) Surgical History H/O carotid endarterectomy H/O lumpectomy S/P lumpectomy, right breast Family History Other Breast cancer Diabetes Heart attack Hypertension Stroke Social History Smoking Status: Never smoker alcohol intake: never substance use type: denies use current occupational status: retired Travel in the last 8 weeks: None housing: house current occupational exposures/hazards: No caffeine: Yes
[2023-01-28 14:21] VITALS: BP 124/94; PULSE 67; RESP 18; O2SAT 93; BMI 21.4
== END ==
PROVIDERS: Visit Provider Nurse Practitioner Family
DX: M51.16 Intervertebral disc disorders with radiculopathy, lumbar region (principal); M47.26 Other spondylosis with radiculopathy, lumbar region
CPT/HCPCS: 99212; G0463

== ENCOUNTER → 2023-03-04 10:57 | Outpatient (CLI) | payer MEDICARE, SELFPAY ==
--- NOTE | 2023-03-04 11:02 | MM_ITS ---
PROCEDURE INFORMATION: Exam: MG Bilateral Screening 3D Mammography Exam date and time: 03/04/2023 10:54 AM Age: 87 years old Clinical indication: Screening examination. History of right breast cancer TECHNIQUE: Imaging protocol: Bilateral Screening tomosynthesis and 2D mammography including computer-aided detection (CAD) when performed. COMPARISON: 1. MG MM DIG SCREENING MAMM BI W/CAD 11/19/2021 4:17 PM 2. MG MM DIG SCREENING MAMM BI W/CAD 04/02/2020 10:30 AM FINDINGS: MAMMOGRAPHY: Breast composition: There are scattered areas of fibroglandular density. Mass: None. Architectural distortion: Stable post operative architectural distortion in the right upper breast with an associated ,likely palpable, 3 cm dystrophic calcification due to prior lumpectomy for carcinoma. Calcifications: No suspicious calcifications. Asymmetric density: None. Skin thickening: None. Axillary adenopathy: None. IMPRESSION: No mammographic evidence of malignancy. Annual screening is recommended unless otherwise clinically indicated. ASSESSMENT: BI-RADS Category 2: Benign
== END ==
PROVIDERS: PCP Physician Assistant; Visit Provider Physician Assistant
DX: Z12.31 Encounter for screening mammogram for malignant neoplasm of breast (principal)
CPT/HCPCS: 77063; 77067

== ENCOUNTER → 2023-03-04 13:21 | Outpatient (POV) | payer MEDICARE, SELFPAY ==
[2023-03-04 15:04] VITALS: BP 144/57; PULSE 69; RESP 19; O2SAT 97; BMI 21.4
--- NOTE | 2023-03-04 15:41 | EXP.PAIN.SOA ---
[facility] Pain Management SOAP Note Subjective:: Patient is a pleasant 87-year-old female who presents today for follow-up. We are currently treating the patient for degenerative disc disease of lumbar spine with lumbar radiculopathy symptoms, lumbar spondylosis, multilevel lumbar facet arthropathy. Today she rates her pain a 10 out of 10. Patient states that her pain is all in her back and is worse with ambulation. Patient does state that she has not had any recent falls or new injury. Patient does describe this as a achy sensation that is worse with increased activity. Patient does state it and interferes with her ability to perform activities of daily living such as cooking and cleaning. Patient does also state that she has bilateral knee pain that is worse with increased activity. Patient denies any previous knee replacements or injections in her knees. Her Judson has been reviewed and is appropriate. #[phone] Review of Systems: General: No recent weight changes, no fever, no sleep disturbances Respiratory: No cough, no shortness of air, no recurring pulmonary infections Cardiovascular/peripheral vascular: No chest pain, no palpitations, no edema, no shortness of breath Gastrointestinal: No new onset incontinence, normal bowel movements reported Genitourinary: No new onset incontinence Musculoskeletal: Low back pain, leg pain Psychiatric: [Normal mood/affect] Neurological: [Denies weakness in extremities], [denies balance issues] Objective:: Physical Exam: General: Alert and oriented x3, no acute distress, pleasant and cooperative Lungs: Respirations even and unlabored, symmetrical chest expansion Eyes: PERRL Musculoskeletal: Flexion and extension of lumbar [spine] somewhat guarded secondary to pain, [antalgic gait noted] Neurological: Speech clear, no gross sensory deficit Assessment:: Degenerative disc disease of lumbar spine with lumbar radiculopathy symptoms, lumbar spondylosis, lumbar facet arthropathy, bilateral knee pain Plan:: Patient is experiencing significant pain in her low back and legs as well as her bilateral knees. Patient did have limited range of motion of the lumbar spine during today's visit. I have discussed with patient that she may benefit from repeat lumbar epidural steroid injection. Patient previously had 1 that did provide 60% improvement lasting at least a month and a half. I have also discussed with the patient in future we may look at doing intra-articular knee injections due to her continued pain at this locations. We will follow-up with this at her next upcoming visit. Patient will be scheduled for a LESI L4-L5. Patient has been instructed to contact the clinic with any concerns before the next appointment. Dr. Serrano has reviewed this note and agrees with this plan of care. This note was dictated using voice recognition software and make contain errors or omissions. [facility] Disclaimer: The information contained in this section may have been updated after the patient was seen, as this information can be updated by other users. Medical History Bleeding ulcer Breast cancer Expressive aphasia Hyperlipidemia Hypertension Right hemiparesis TIA (transient ischemic attack) TIA (transient ischemic attack) 10/15/22 Surgical History H/O carotid endarterectomy H/O lumpectomy S/P lumpectomy, right breast Family History Other Breast cancer Diabetes Heart attack Hypertension Stroke Social History Smoking Status: Never smoker alcohol intake: never substance use type: denies use current occupational status: retired Travel in the last 8 weeks: None housing: house current occupational exposures/hazards: No caffeine: Yes
== END ==
PROVIDERS: PCP Physician Assistant; Visit Provider Physician Assistant
DX: Z12.31 Encounter for screening mammogram for malignant neoplasm of breast (principal)
CPT/HCPCS: 77063; 77067; 99212; G0463

== ENCOUNTER 2023-03-17 11:17 | Day surgery (SDC) | payer MEDICARE, SELFPAY ==
[2023-03-17 11:39] VITALS: BP 139/78; PULSE 62; RESP 18; TEMP 36.2; O2SAT 98; BMI 20.6
--- NOTE | 2023-03-17 12:13 | EXP.PAIN.PRO ---
Procedure Date: 03/17/23 Time: 12:00 Anesthesiologist:: Zan Linares CRNA Complications:: None Pre-procedure Diagnosis:: Degenerative disc lumbar spine multilevels. Lumbar radiculopathy. Lumbar spondylosis. Multilevel lumbar facet arthropathy. Post-procedure Diagnosis:: Same. Indications for Procedure:: Patient is a very pleasant 87-year-old female comes our clinic today for lumbar epidural steroid injection at the L4-5 level. Patient describes low back pain as constant, dull, aching. Patient also complains of bilateral hip and leg radicular symptoms to the foot. She rates her pain 7/10. Discussed in detail with the patient regarding bilateral knee pain. Patient reports severe pain 9/10 bilateral knees with ambulating. Patient having difficulty transitioning from sitting to standing due to knee pain. Patient has been informed by orthopedic surgery she has severe osteoarthritis bilateral knees. However, secondary to patient's age and health status no surgery indicated. We discussed intra-articular cortisone injections. We will set this up for her today. Procedure Details:: Procedure: Lumbar epidural steroid injection under fluoroscopy Informed consent was obtained and the risks and benefits of the procedure were explained to the patient. The patient was taken to the procedure room and noninvasive monitors placed, including noninvasive blood pressure cuff and pulse oximeter. The back was viewed using C-arm Fluoroscopy and prepped using Chloraprep as a cleansing solution and the L4-L5 interspace was palpated. Skin and subcutaneous tissues were anesthetized using lidocaine 1.5% and a 25-gauge needle. After this, an 18-gauge Touhy epidural needle was placed into the L4-L5 interspace and advanced using fluoroscopic guidance and loss of resistance to air until the epidural space was encountered. After confirmation of needle placement in the epidural space, with dye, a solution containing normal saline, 3 mL and Depo-Medrol 80 mg were incrementally injected into the lumbar epidural space. The patient tolerated the procedure well with no complications. The patient was observed in the Pain Clinic and then discharged home neurologically intact. Plan and Disposition:: Patient was discharged out incident.
[2023-03-17 12:15] VITALS: BP 126/77; PULSE 101; RESP 20
[2023-03-17 12:20] VITALS: BP 130/76; PULSE 64; RESP 16; O2SAT 98
== END 2023-03-17 12:20 | disposition home or self-care (01) ==
PROVIDERS: PCP Physician Assistant; Visit Provider Nurse Anesthetist, Certified Registered
DX: M51.16 Intervertebral disc disorders with radiculopathy, lumbar region (principal); M47.26 Other spondylosis with radiculopathy, lumbar region
CPT/HCPCS: 62323; J1040

== ENCOUNTER 2023-03-31 10:05 | Day surgery (SDC) | payer MEDICARE, SELFPAY ==
[2023-03-31 10:27] VITALS: BP 123/72; PULSE 66; RESP 16; TEMP 36.2; O2SAT 100; BMI 20.6
--- NOTE | 2023-03-31 10:38 | P.PCN_ITS ---
Procedure Date: 03/31/23 Time: 10:30 Anesthesiologist:: Zan Linares CRNA Complications:: None Pre-procedure Diagnosis:: DJD bilateral knees. Chronic bilateral knee pain. Post-procedure Diagnosis:: Same. Indications for Procedure:: Pleasant 87-year-old female that comes our clinic today for bilateral intra- articular knee injections. Patient is ambulatory however she arrives today by wheelchair due to the distance from the parking lot. Patient has chronic knee pain she describes as constant, dull, aching. She rates her pain 6/10. Procedure Details:: Procedure Details: Bilateral intra-articular knee injection Informed consent was obtained risk and benefits of the procedure were explained to the patient. Patient was taken the procedure room both knees were prepped using ChloraPrep. A 25-gauge needle was used to inject 10 mL bupivacaine 0.25% and Depo-Medrol 40 mg into each knee. We did a total of 80 mg Depo-Medrol for both knees. The patient tolerated the procedure well with no complications. Plan and Disposition:: Patient was discharged without incident.
[2023-03-31 10:41] VITALS: BP 121/53; PULSE 68; RESP 18; O2SAT 100
== END 2023-03-31 10:41 | disposition home or self-care (01) ==
PROVIDERS: PCP Physician Assistant; Visit Provider Nurse Anesthetist, Certified Registered
DX: M17.0 Bilateral primary osteoarthritis of knee (principal); M25.561 Pain in right knee; M25.562 Pain in left knee; G89.29 Other chronic pain
CPT/HCPCS: 20610; J1040

== ENCOUNTER → 2023-04-20 11:25 | Outpatient (POV) | payer MEDICARE, SELFPAY ==
--- NOTE | 2023-04-20 11:33 | EXP.PAIN.SOA ---
[facility] Pain Management SOAP Note Subjective:: Patient is a pleasant 87-year-old female who presents today for follow-up of bilateral knee intra-articular injections on 03/31/2023. We are currently treating the patient for degenerative disc disease of lumbar spine with lumbar radiculopathy symptoms, lumbar spondylosis, multilevel lumbar facet arthropathy, bilateral knee pain/osteoarthritis. Today she rates her pain a 0 out of 10. She states that she has had 100% relief in her bilateral knee pain following these injections and that they are still providing good improvement. Patient states she has been able to increase her activity with decreased pain symptoms. She does however state that she continues to have chronic low back pain that is worse in the mornings or with increased activity and ambulation. Patient states that her pain will go up to a 5 or 6 out of 10. She states her back pain does interfere with activities of daily living such as cooking and cleaning. Patient has tried injections in her back that were hit or miss. Patient states she would be interested in other options for her worsening low back pain. She does also state over the last months she has had increased itching in and around her bottom area. Patient states that she has tried a new type of underwear/depends that were given to her and she believes that is related to this. Patient also states she has been experiencing more swelling in her lower ankles and feet. Patient states she is on a daily fluid pill and has a cardiac history. her Judson has been reviewed and is appropriate. Review of Systems: General: No recent weight changes, no fever, no sleep disturbances Respiratory: No cough, no shortness of air, no recurring pulmonary infections Cardiovascular/peripheral vascular: No chest pain, no palpitations, no edema, no shortness of breath Gastrointestinal: No new onset incontinence, normal bowel movements reported Genitourinary: No new onset incontinence Musculoskeletal: Low back pain Psychiatric: [Normal mood/affect] Neurological: [Denies weakness in extremities], [denies balance issues] Objective:: Physical Exam: General: Alert and oriented x3, no acute distress, pleasant and cooperative Lungs: Respirations even and unlabored, symmetrical chest expansion Eyes: PERRL Musculoskeletal: Flexion and extension of lumbar [spine] somewhat guarded secondary to pain, [antalgic gait noted] Neurological: Speech clear, no gross sensory deficit Assessment:: Degenerative disc disease of lumbar spine with lumbar radiculopathy symptoms, lumbar spondylosis, lumbar facet arthropathy, bilateral knee pain/osteoarthritis Plan:: Patient continues to experience significant pain in her low back with limited range of motion. I have discussed with the patient that she may benefit from a intrathecal pain pump trial in the future. Risk and benefits were discussed with patient and she would like to proceed forward with this plan of care. She was given educational handouts during today's visit. I will order a psychological evaluation and if she is deemed an appropriate candidate we will proceed forward with the trial at a future date. Patient did have 100% improvement in her bilateral knee pain following her intra-articular injections and does not require any additional injection therapy at this location. Patient will return to clinic in 1 month following her psychological evaluation for plan of care and follow-up. I will send in an order for Salonpas patches and provide a 1 month supply of these. Patient has been instructed to contact the clinic with any concerns before the next appointment. Dr. Serrano has reviewed this note and agrees with this plan of care. This note was dictated using voice recognition software and make contain errors or omissions. [facility] Disclaimer: The information contained in this section may have been updated after the patient was seen, as this information can be updated by other
[2023-04-20 12:28] VITALS: BP 196/78; PULSE 78; RESP 18; O2SAT 95; BMI 21.4
== END | disposition home or self-care (01) ==
PROVIDERS: PCP Physician Assistant; Visit Provider Nurse Practitioner Family
DX: M51.16 Intervertebral disc disorders with radiculopathy, lumbar region (principal); M47.26 Other spondylosis with radiculopathy, lumbar region; M17.0 Bilateral primary osteoarthritis of knee; M25.561 Pain in right knee; M25.562 Pain in left knee
CPT/HCPCS: 99212; G0463

== ENCOUNTER → 2023-04-20 23:39 | Outpatient (CLI) | payer MEDICARE, SELFPAY ==
[2023-04-20 19:01] LABS: Basophils % 0.4 % (0.1-2.0); Eosinophils # 0.2 K/mm3 (0.0-0.4); Eosinophils % 4.1 % (0.1-12.0); Hematocrit 35.2 % (37.0-47.0); Hemoglobin 11.6 g/dL (12.2-16.2); Lymphocytes # 0.8 K/mm3 (0.7-4.5); Lymphocytes % 18.8 % (10-50); Mean Corpuscular HGB Conc 32.9 g/dL (31.8-35.4); Mean Corpuscular Hemoglobin 32.2 pg (27.0-31.2); Mean Corpuscular Volume 97.7 fl (81-99); Mean Platelet Volume 9.7 fl (7.4-10.4); Monocytes # 0.4 K/mm3 (0.1-1.0); Monocytes % 8.5 % (1.7-9.3); Neutrophils % 68.2 % (37.0-80.0); Platelet Count 185 K/mm3 (142-424); Red Cell Distribution Width 13.7 % (11.5-17.5); White Blood Count 4.4 K/mm3 (4.8-10.8)
[2023-04-20 19:13] LABS: Chloride 107 mmol/L (98-107); Sodium 138 mmol/L (136-145)
[2023-04-20 19:14] LABS: Potassium 4.2 mmoL/L (3.5-5.1)
[2023-04-20 19:16] LABS: Alanine Aminotransferase 17 U/L (12-78); Alkaline Phosphatase 67 U/L (38-126); Aspartate Amino Transferase 32 U/L (14-36); Bilirubin,Total 0.6 mg/dl (0.2-1.3); Blood Urea Nitrogen 24 mg/dl (7-17); Estimated Glomerular Filt Rate 33 ml/min (>60); GFR (African American) 40 ML/MIN (>60)
[2023-04-20 19:17] LABS: Albumin Level 4.1 g/dl (3.5-5.0); Albumin/Globulin Ratio 1.6 (1.1-1.8); Anion Gap 12.2 mEq/L (5-15); Carbon Dioxide 23 mmol/L (22.0-30.0); Globulin 2.5 g/dL (1.3-3.2); Glucose 118 mg/dl (74-100); Total Protein,Serum 6.6 g/dl (6.3-8.2)
== END ==
PROVIDERS: PCP Physician Assistant; Visit Provider Internal Medicine
DX: M54.50 Low back pain, unspecified (principal); I10 Essential (primary) hypertension
CPT/HCPCS: 80053; 85025; 99212; G0463

== ENCOUNTER → 2023-04-30 14:44 | Outpatient (CLI) | payer MEDICARE, SELFPAY ==
[2023-04-30 15:05] LABS: Basophils % 0.5 % (0.1-2.0); Eosinophils # 0.2 K/mm3 (0.0-0.4); Eosinophils % 3.9 % (0.1-12.0); Hematocrit 33.2 % (37.0-47.0); Hemoglobin 11.2 g/dL (12.2-16.2); Lymphocytes % 20.7 % (10-50); Mean Corpuscular HGB Conc 33.6 g/dL (31.8-35.4); Mean Corpuscular Hemoglobin 32.2 pg (27.0-31.2); Mean Corpuscular Volume 95.9 fl (81-99); Mean Platelet Volume 8.4 fl (7.4-10.4); Monocytes # 0.4 K/mm3 (0.1-1.0); Monocytes % 9.2 % (1.7-9.3); Neutrophils % 65.7 % (37.0-80.0); Platelet Count 179 K/mm3 (142-424); Red Blood Count 3.46 M/mm3 (4.20-5.40); Red Cell Distribution Width 13.5 % (11.5-17.5); White Blood Count 4.6 K/mm3 (4.8-10.8)
[2023-05-04 15:38] LABS: Peripheral Smear Review Scanned Result
== END ==
PROVIDERS: PCP Physician Assistant; Visit Provider Internal Medicine
DX: I10 Essential (primary) hypertension (principal); D64.9 Anemia, unspecified
CPT/HCPCS: 36415; 85025

== ENCOUNTER 2023-05-08 12:20 | Emergency (ER) | payer MEDICARE, SELFPAY ==
[2023-05-08 12:45] VITALS: BP 193/79; PULSE 76; RESP 20; TEMP 36.8; O2SAT 98; BMI 20.2
--- NOTE | 2023-05-08 12:52 | PC.NURSE ---
pt advised I have been hurting for 7 or 8 hours now and I need action.
[2023-05-08 13:00] VITALS: BP 171/86; PULSE 76; O2SAT 98
--- NOTE | 2023-05-08 13:05 | CT_ITS ---
FINAL REPORT TECHNIQUE: Pre-and postcontrast images of the abdomen and pelvis were performed by computed tomography. Extensive 3-D reconstruction images were performed. A CTA was performed. This study was performed with techniques to keep radiation doses as low as reasonably achievable (ALARA). Individualized dose reduction techniques using automated exposure control or adjustment of mA and/or kV according to the patient's size were employed. CLINICAL HISTORY: sudden RLQ abd pain COMPARISON: None FINDINGS: ABDOMEN AND PELVIS: There are chronic changes in the lung bases as well as a calcified granuloma in the right lung base. A small sliding-type hiatal hernia is present. There is moderate right hydronephrosis and hydroureter with an obstructing stone at the right ureterovesicular junction which measures 6 mm in size. No adrenal masses are identified. The liver, spleen and pancreas are unremarkable. There is lumbar scoliosis convex to the patient's right which measures 23 degrees. There is extensive descending and sigmoid colon diverticulosis. No acute inflammatory changes present. CTA: The abdominal aorta is proper caliber. The SMA, celiac axis, and IVIS are patent. 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 There is also moderate narrowing at the origins of the renal arteries bilaterally. There is marked tortuosity of the infrarenal abdominal aorta. The iliac arteries are patent without significant stenosis. IMPRESSION: Moderate right hydronephrosis and hydroureter with an obstructing stone measuring 6 mm in size at the right UVJ. 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 There is marked tortuosity of the infrarenal abdominal aorta. Reviewed, Interpreted and Dictated by Gregory Pierre MD Transcribed by Minda Medrano Authenticated and [facility]
--- NOTE | 2023-05-08 13:07 | HMH.EDGENADL ---
Discharge Plan Disposition Patient Disposition: Still a Patient Prescriptions Prescriptions: New hydrocodone-acetaminophen 5-325 mg tablet 1 tab PO Q6H PRN (Reason: pain) 3 Days Qty: 12 0RF tamsulosin [Flomax] 0.4 mg capsule 0.4 mg PO DAILY 7 Days Qty: 7 0RF ibuprofen 400 mg tablet 400 mg PO TID PRN (Reason: pain) Qty: 20 0RF ondansetron 4 mg tablet,disintegrating 4 mg PO Q6H PRN (Reason: nausea and vomiting) 5 Days Qty: 20 0RF No Action diphenhydramine HCl [Benadryl] 25 mg capsule 25 mg PO HS PRN (Reason: sleep) amlodipine 5 mg tablet 5 mg PO DAILY Qty: 90 2RF atorvastatin 40 mg tablet 40 mg PO HS Qty: 90 2RF famotidine [Zantac-360 (famotidine)] 20 mg tablet 20 mg PO DAILY Qty: 90 2RF cetirizine 10 mg tablet 10 mg PO DAILY Qty: 30 3RF calcium carbonate-vitamin D3 1 EACH tablet 1 tab PO DAILY alendronate 70 mg tablet 70 mg PO WEEKLY orphenadrine citrate 100 mg tablet extended release 100 mg PO BID Salonpas 3.1-10-6 % adhesive patch,medicated 1 patch topical TIDP PRN (Reason: pain) 5 Days Qty: 20 0RF Rx Instructions: may leave on area for up to 8 hrs lisinopril 20 mg tablet See Rx Instructions .ROUTE .COMPLEX Rx Instructions: Take 1 tablet by mouth once daily lansoprazole 30 mg capsule,delayed release(DR/EC) See Rx Instructions .ROUTE .COMPLEX Rx Instructions: Take 1 capsule by mouth once daily Referrals Follow up/Referrals: Aleah Cook PA [Primary Care Provider] - See instructions Activity Restrictions/Add. Instructions Additional Instructions/Restrictions: He is return to the emergency department with any refractory pain nausea vomiting or high fevers. You have a 6 mm obstructing kidney stone at the ureterovesical junction we we will attempt an outpatient trial of passage but you may return to the emergency department if you have any of the above symptoms. Please follow-up with a urologist as instructed and if you return to the emergency department I would recommend you follow-up with the emergency department that has urologic coverage or to come back to [facility] we will need to transfer you if you need surgical intervention as we do not have urology coverage here in the emergency department. Clinical Impressions Clinical Impression: Abdominal pain, RLQ, Hydronephrosis concurrent with and due to calculi of kidney and ureter Discharge ED Provider: Ada Mathis General Adult HPI General Chief complaint: PAIN Stated complaint: right side pain Time Seen by Provider: 05/08/23 13:00 Mode of Arrival: Wheelchair Source of Information: Patient Limitations: No Limitations Description of Symptoms (Recalled from ER Triage Doc. by RN): pt to ed c/o right sided pain. pt states she has had a normal bm every day, including this morning. pt states she feels like she still needs to go. pt states she gave herself 2 enemas this morning and then had a watery bm. pt denies any blood in her stool. History of Present Illness HPI narrative: Patient is an 87-year-old female presents today with right lower quadrant abdominal pain that began suddenly around 2 AM this morning. She states that she thought that it was associated with constipation however she had a normal bowel movement and subsequently gave herself some suppositories and 2 enemas and had more watery bowel movements without any improvement in her symptoms and the pain has been persistent and severe since that time. She states that I either need to have a bowel movement or have appendicitis. Patient denies any other significant medical problems and states she has been very healthy up to this point in her life. Related Data Home Medications Medication Instructions Recorded Confirmed calcium carbonate 600 mg-vitamin 1 tab PO DAILY Supplement 01/04/21 04/20/23 D3 10 mcg (400 unit) tablet alendronate 70 mg tablet 70 mg PO WEEKLY Osteoporosis
[2023-05-08 13:42] LABS: Basophils % 0.1 % (0.1-2.0); Eosinophils # 0.1 K/mm3 (0.0-0.4); Eosinophils % 1.1 % (0.1-12.0); Hematocrit 34.6 % (37.0-47.0); Hemoglobin 11.8 g/dL (12.2-16.2); Lymphocytes # 0.6 K/mm3 (0.7-4.5); Lymphocytes % 5.6 % (10-50); Mean Corpuscular HGB Conc 34.1 g/dL (31.8-35.4); Mean Corpuscular Hemoglobin 32.4 pg (27.0-31.2); Mean Corpuscular Volume 94.9 fl (81-99); Mean Platelet Volume 9.8 fl (7.4-10.4); Monocytes # 0.6 K/mm3 (0.1-1.0); Monocytes % 5.6 % (1.7-9.3); Neutrophils # 8.8 K/mm3 (1.8-7.8); Neutrophils % 87.6 % (37.0-80.0); Platelet Count 146 K/mm3 (142-424); Red Blood Count 3.65 M/mm3 (4.20-5.40); Red Cell Distribution Width 13.6 % (11.5-17.5); White Blood Count 10.1 K/mm3 (4.8-10.8)
[2023-05-08 13:43] LABS: MANUAL DIFFERENTIAL MANUAL DIFFERENTIAL (MANUAL DIFF)
[2023-05-08 13:44] LABS: Chloride 105 mmol/L (98-107); Sodium 138 mmol/L (136-145)
[2023-05-08 13:45] LABS: Potassium 4.7 mmoL/L (3.5-5.1)
[2023-05-08 13:47] LABS: Alanine Aminotransferase 18 U/L (12-78); Alkaline Phosphatase 87 U/L (38-126); Anion Gap 13.7 mEq/L (5-15); Aspartate Amino Transferase 35 U/L (14-36); Bilirubin,Total 0.6 mg/dl (0.2-1.3); Blood Urea Nitrogen 20 mg/dl (7-17); Carbon Dioxide 24 mmol/L (22.0-30.0); Creatinine Clearance Estimated 19 mL/min (50-200); Estimated Glomerular Filt Rate 30 ml/min (>60); GFR (African American) 37 ML/MIN (>60); Lipase 191 U/L (23-300)
[2023-05-08 13:48] LABS: Albumin Level 4.6 g/dl (3.5-5.0); Albumin/Globulin Ratio 1.6 (1.1-1.8); Calcium 9.4 mg/dl (8.4-10.2); Globulin 2.9 g/dL (1.3-3.2); Glucose 129 mg/dl (74-100); Total Protein,Serum 7.5 g/dl (6.3-8.2)
--- NOTE | 2023-05-08 13:53 | ECG_ITS ---
APPROVED REPORT Exam: Resting ECG HR:77 bpm ECG Measurements Heart Rate 77 AXES DC 167 P 54 QRSd 76 QRS 54 QT 402 T 66 QTc 434 Conclusion SINUS RHYTHM WITH OCCASIONAL SUPRAVENTRICULAR PREMATURE COMPLEXES POSSIBLE LEFT ATRIAL ENLARGEMENT [-0.1mV P-WAVE IN V1/V2] SEPTAL MYOCARDIAL INFARCTION , PROBABLY OLD [40+ ms Q WAVE IN V1/V2] ABNORMAL ECG UNCONFIRMED REPORT Electronically signed by : Frandy Schulz MD 05/08/2023 17:58:36
[2023-05-08 14:30] VITALS: BP 195/89; PULSE 85; O2SAT 92
[2023-05-08 14:44] LABS: Eosinophils % 1 % (0-3); Lymphocytes % 9 % (10-50); Monocytes % 3 % (2-9); Neutrophils % 87 % (42-76); Platelet Estimate Normal; RBC Morphology Normal; Total Cells Counted 100
[2023-05-08 15:01] VITALS: BP 193/85; PULSE 84; O2SAT 93
[2023-05-08 15:30] VITALS: BP 196/95; PULSE 86; RESP 20; O2SAT 98
[2023-05-08 15:53] VITALS: BP 181/87; PULSE 77; RESP 16; TEMP 36.6; O2SAT 97
== END 2023-05-08 15:54 | disposition home or self-care (01) ==
PROVIDERS: Emergency Provider Student in an Organized Health Care Education/Training Program; PCP Physician Assistant
DX: R10.31 Right lower quadrant pain (principal); N13.2 Hydronephrosis with renal and ureteral calculous obstruction; I10 Essential (primary) hypertension; E78.5 Hyperlipidemia, unspecified; Z86.73 Personal history of transient ischemic attack (TIA), and cerebral infarction without residual deficits
CPT/HCPCS: 74174; 80053; 83690; 85007; 85025; 93005; 96361; 96374; 96375; 99285; J2405; Q9967

== ENCOUNTER 2023-08-31 11:55 | Outpatient (CLI) | payer MEDICARE, SELFPAY ==
[2023-08-31 18:22] LABS: Basophils % 0.4 % (0.1-2.0); Eosinophils # 0.2 K/mm3 (0.0-0.4); Eosinophils % 4.5 % (0.1-12.0); Hematocrit 37.4 % (37.0-47.0); Hemoglobin 11.9 g/dL (12.2-16.2); Lymphocytes # 0.9 K/mm3 (0.7-4.5); Lymphocytes % 18.6 % (10-50); Mean Corpuscular HGB Conc 31.9 g/dL (31.8-35.4); Mean Corpuscular Hemoglobin 31.2 pg (27.0-31.2); Mean Corpuscular Volume 97.9 fl (81-99); Mean Platelet Volume 9.2 fl (7.4-10.4); Monocytes # 0.5 K/mm3 (0.1-1.0); Monocytes % 10.1 % (1.7-9.3); Neutrophils % 66.3 % (37.0-80.0); Platelet Count 175 K/mm3 (142-424); Red Blood Count 3.82 M/mm3 (4.20-5.40); Red Cell Distribution Width 13.9 % (11.5-17.5); White Blood Count 4.6 K/mm3 (4.8-10.8)
[2023-08-31 18:55] LABS: Chloride 109 mmol/L (98-107); Potassium 4.2 mmoL/L (3.5-5.1); Sodium 139 mmol/L (136-145)
[2023-08-31 18:58] LABS: Alanine Aminotransferase 15 U/L (12-78); Albumin Level 3.8 g/dl (3.5-5.0); Albumin/Globulin Ratio 1.6 (1.1-1.8); Alkaline Phosphatase 89 U/L (38-126); Anion Gap 10.2 mEq/L (5-15); Aspartate Amino Transferase 32 U/L (14-36); Bilirubin,Total 0.6 mg/dl (0.2-1.3); Blood Urea Nitrogen 23 mg/dl (7-17); Calcium 9.3 mg/dl (8.4-10.2); Carbon Dioxide 24 mmol/L (22.0-30.0); Estimated Glomerular Filt Rate 30 ml/min (>60); GFR (African American) 37 ML/MIN (>60); Globulin 2.4 g/dL (1.3-3.2); Glucose 119 mg/dl (74-100); Total Protein,Serum 6.2 g/dl (6.3-8.2)
[2023-09-02 17:58] LABS: Peripheral Smear Review Scanned Result
== END 2023-08-31 23:59 | disposition home or self-care (01) ==
LOC: LAB.DROPOF 09-01 11:57
PROVIDERS: PCP Physician Assistant; Visit Provider Physician Assistant
DX: R53.83 Other fatigue (principal); N39.0 Urinary tract infection, site not specified; B96.89 Other specified bacterial agents as the cause of diseases classified elsewhere
CPT/HCPCS: 80053; 84443; 85025; 87086

== ENCOUNTER 2024-02-09 09:40 | Day surgery (SDC) | payer MEDICARE, SELFPAY ==
[2024-02-09 09:52] VITALS: BP 113/54; PULSE 59; RESP 16; TEMP 36.6; O2SAT 98; BMI 18.8
[2024-02-09] MEDS: methylPREDNISolone ACETATE 80MG/ML VIAL 80 MG (10:09)
[2024-02-09] MEDS: LIDOCAINE 1% 5ML PF VIAL 5 ML (10:10)
[2024-02-09] MEDS: BUPIVACAINE 0.25% 10ML INJ 25 MG IJ (10:10)
[2024-02-09 10:17] VITALS: BP 119/54; PULSE 59; RESP 18; O2SAT 99
--- NOTE | 2024-02-09 10:20 | EXP.PAIN.PRO ---
Procedure Date: 02/09/24 Time: 10:10 Anesthesiologist:: Zan Linares CRNA Complications:: None Pre-procedure Diagnosis:: DJD bilateral knee. Chronic bilateral knee pain. Post-procedure Diagnosis:: Same. Indications for Procedure:: Patient is a very pleasant 88-year-old female comes our clinic today for bilateral intra-articular knee injections of cortisone and local anesthetic. Patient is ambulatory with assistance. Otherwise, uses a wheelchair. She reports these are most painful when transitioning from sitting to standing. She rates her pain 8/10. Procedure Details:: Informed consent was obtained risk and benefits of the procedure were explained to the patient. Patient was taken the procedure room both knees were prepped using ChloraPrep. A 25-gauge needle was used to inject 10 mL bupivacaine 0.25% and Depo-Medrol 40 mg into each knee. We did a total of 80 mg Depo-Medrol for both knees. The patient tolerated the procedure well with no complications. Plan and Disposition:: Patient was discharged without incident.
== END 2024-02-09 10:17 | disposition home or self-care (01) ==
PROVIDERS: PCP Family Medicine; Visit Provider Nurse Anesthetist, Certified Registered
DX: M17.0 Bilateral primary osteoarthritis of knee (principal); M25.561 Pain in right knee; M25.562 Pain in left knee; G89.29 Other chronic pain
CPT/HCPCS: 20610; J1010